=== PATIENT | female | born 1975 | race Caucasian/White ===

== ENCOUNTER → 2017-08-03 12:05 | Outpatient (CLI) | payer OTHER, SELFPAY ==
--- NOTE | 2017-08-03 12:12 | RAD_ITS ---
STUDY: X-RAY CHEST REASON FOR EXAM: Female, 42 years old. Acute bronchitis. TECHNIQUE: PA and lateral views of the chest. COMPARISON: April 17, 2009 FINDINGS: The lungs are clear and expanded. There is no demonstrated pleural abnormality. Normal size heart. Normal mediastinum and cele. Normal visualized pulmonary arteries. Normal visualized aortic arch and descending thoracic aorta. There is stable scoliosis of thoracic spine. Normal visualized ribs, clavicles, and shoulders. There is no demonstrated abnormality of the visualized soft tissue structures of the upper abdomen. RAD/Chest PA and Lateral IMPRESSION: No acute cardiopulmonary disease or interval change. Electronically Signed: Colby Fontana DO at 18:20 EST Tel [phone], Service support ,
== END ==
PROVIDERS: Family Provider Family Medicine; PCP Family Medicine; Visit Provider Family Medicine
DX: J20.9 Acute bronchitis, unspecified (principal)
CPT/HCPCS: 71046

== ENCOUNTER → 2017-10-26 10:00 | Outpatient (CLI) | payer BC, SELFPAY ==
[2017-10-26 11:22] LABS: Internal QC Validated? YES +Cl - CLEAR BKGD; Pregnancy, Urine Negative Negative
[2017-10-26 12:10] LABS: AST(SGOT) 15 U/L (15-37); Alanine Aminotransfer ALT/SGPT 17 U/L (13-56); Albumin, Serum 3.6 g/dL (3.2-5.0); Alkaline Phosphatase 46 U/L (45-117); Anion Gap 6 (5-15); BUN 11 mg/dL (7-18); BUN/Creat Ratio 14.9 RATIO (10-20); Bilirubin, Direct 0.11 mg/dL (0.00-0.30); Calcium,Total 8.2 mg/dL (8.5-10.1); Chloride 107 mmol/L (98-107); Cholesterol 141 mg/dL (200); Creatinine, Serum 0.74 mg/dL (0.55-1.02); EST Glomerular Filtration Rate 92 mL/min (>60); Est Glom Filt Rate - Afr Amer 112 mL/min (>60); Globulin 3.4 g/dL (2.2-4.2); Glucose 82 mg/dL (74-106); High Density Lipoprotein 60 mg/dL; Potassium 3.9 mmol/L (3.5-5.1); Sodium Level 142 mmol/L (136-145); T4 Total, Thyroxin 10.9 ug/dL (4.8-13.9); Thyroid Stim Hormone (TSH) 1.71 uIU/mL (0.358-3.74); Triglycerides 49 mg/dL; Very Low Density Lipoprotein 10 mg/dL (5-40)
== END ==
PROVIDERS: Family Provider Family Medicine; PCP Family Medicine; Visit Provider Internal Medicine Cardiovascular Disease
DX: R55 Syncope and collapse (principal); R00.2 Palpitations; R06.09 Other forms of dyspnea
CPT/HCPCS: 36415; 80048; 80061; 80076; 81025; 84436; 84443

== ENCOUNTER → 2017-11-01 12:46 | Outpatient (CLI) | payer BC, SELFPAY ==
--- NOTE | 2017-11-01 12:49 | ECHOD_ITS ---
Reason For Study: Arrhythmia Procedure This was a 2D Doppler, Color Flow transthoracic echocardiogram. Exam performed in department. Left Ventricle Normal size and thickness. The estimated ejection fraction is 65 %. Normal diastology for age. No regional wall motion abnormalities noted. Right Ventricle Normal size and thickness. Normal systolic function. Atria Normal left atrium. Normal right atrium. Normal atrial septum. Mitral Valve The mitral valve is structurally normal. No prolapse or stenosis seen. Tricuspid Valve Normal tricuspid valve. Trivial tricuspid valve insufficiency. Right ventricular systolic pressure estimated to be 21 mmHg. Aortic Valve Normal aortic valve. Trisinus/trileaflet aortic valve. Pulmonic Valve Normal pulmonic valve. Great Vessels Normal aortic root. Normal arch. Normal inferior vena cava. Inferior vena cava collapse with sniff. Pericardium/Pleural No pericardial effusion. MMode/2D Measurements & Calculations LVIDd: 4.1 cm IVSd: 0.92 cm Ao root diam: 2.7 cm LVIDs: 2.7 cm LVPWd: 0.75 cm LA dimension: 2.9 cm RVDd: 2.9 cm FS: 34.5 % LAV(MOD-bp): 31.9 ml LA A4 area: 14.7 cm2 RA A4 area: 13.0 cm2 LAV(MOD-bp) Indexed: 19.5 ml/m2 LAV(MOD-sp2): 28.2 ml LAV(MOD-sp4): 32.6 ml Time Measurements MV dec time: 0.22 sec Doppler Measurements & Calculations MV E max samuel: 99.7 cm/sec Lat Peak E' Samuel: 20.9 cm/sec Med Peak E' Samuel: 16.6 cm/sec MV A max samuel: 66.1 cm/sec E/E' lat: 4.8 E/E' med: 6.0 MV E/A: 1.5 MV V2 max: 111.9 cm/sec MV P1/2t max samuel: 111.9 cm/sec Ao V2 max: 137.4 cm/sec MV max P.0 mmHg MV P1/2t: 90.5 msec Ao max P.6 mmHg MV V2 mean: 57.6 cm/sec MV dec slope: 362.1 cm/sec2 Ao V2 mean: 93.8 cm/sec MV mean P.6 mmHg MVA(P1/2t): 2.4 cm2 Ao mean P.9 mmHg MV V2 VTI: 31.4 cm Ao V2 VTI: 28.0 cm LV V1 max: 106.8 cm/sec PA V2 max: 100.2 cm/sec TR max samuel: 196.8 cm/sec LV V1 max P.6 mmHg TR max P.5 mmHg LV V1 mean P.2 mmHg LV V1 mean: 67.5 cm/sec LV V1 VTI: 22.0 cm Interpretation Summary The estimated ejection fraction is 65 %. Normal diastology for age. Trivial tricuspid valve insufficiency. Right ventricular systolic pressure estimated to be 21 mmHg. There is no comparison study available. Ordering Physician: Santos Elise Referring Physician: Santos Elise Performed By: Les Ruiz RCS
== END ==
PROVIDERS: Family Provider Family Medicine; PCP Family Medicine; Visit Provider Internal Medicine Cardiovascular Disease
DX: R06.09 Other forms of dyspnea (principal); R55 Syncope and collapse; R00.2 Palpitations
CPT/HCPCS: 93306

== ENCOUNTER → 2017-11-03 12:20 | Outpatient (CLI) | payer BC, SELFPAY ==
--- NOTE | 2017-11-03 12:22 | STE_ITS ---
Reason For Study: Arrhythmia Stress Results Protocol: [facility] Protocol Maximum Predicted HR: 179 bpm Target HR: 152 bpm% Max imum Predicted HR: 97 % DurationHeart Rate Stage (mm:ss) (bpm) BPCom ment Baseline 61 100/62 No Chest Pain [facility] Protocol Stage I 3:00 11 8 110/64No Chest Pain [facility] Protocol Stage II 3:00 16 2 120/70No Chest Pain; Mild Dyspnea [facility] Protocol Stage III 2:00 17 3 130/72No Chest Pain; Mild to Moderate Dyspnea Recovery 96 98/64 No Chest Pain; No Dyspnea Stress Duration: 8:00 mm:ss Maximum Stress HR: 173 bpmM ETS: 10 Baseline Echocardiogram Findings The estimated ejection fraction is 65 %. Stress Echo Wall motion Data Resting WMIntermediate WMStress WM Resting Wall Motion Wall Motion Stress No regional wall motion No regional wall motion abnormalities noted. abnormalities noted. EKG Data Normal intervals are noted. The patient exercised according to the regular [facility] protocol for a total duration of 8:00. The maximum heart rate attained was 176 beats per minute. This was 98% of maximum predicted heart rate. The patient exercised into stage 3 of the [facility] protocol. At peak exercise, upsloping ST changes only were noted, which did not meet the criteria for ischemia. No clinical angina was noted. No arrhythmias noted. Interpretation Summary The estimated ejection fraction is 65 %. Normal adequate treadmill echocardiogram. Negative for ischemia by EKG and echocardiographic criteria. No anginal symptoms noted. No arrhythmias noted. Appropriate blood pressure response to exercise. Below average exercise capacity for age. Test terminated due to dyspnea. Final LVEF of 75%. No complications. Ordering Physician: Santos Elise Referring Physician: Santos Elise Performed By: Ada Guzman RDCS
== END ==
PROVIDERS: Family Provider Family Medicine; PCP Family Medicine; Visit Provider Internal Medicine Cardiovascular Disease
DX: R06.09 Other forms of dyspnea (principal); R55 Syncope and collapse; R00.2 Palpitations
CPT/HCPCS: 93017; 93350

== ENCOUNTER → 2018-09-11 15:15 | Outpatient (CLI) | payer BC, SELFPAY ==
[2018-09-11 09:22] VITALS: BMI 25.0
[2018-09-13 13:10] LABS: HPV APTIMA, High Risk Negative (Negative)
--- OUTSIDE RECORDS SUMMARY | 2018-10-31 21:22 | XMS RPT_ITS | CCD ---
:1975 External Reference #:[id number] Author Organization [employer] Care Team Providers Name Role Phone Unavailable Unavailable Unavailable Allergies Reported Allergen Reaction(s) Severity Date of Onset Location moxifloxacin Translations: AO Unknown [facility] [ Avelox] [facility] Repository moxifloxacin Translations: AOF 04-26-2006 - [facility] [ MOXIFLOXACIN HCL] [place] Repository No Known Allergies [facility] Translations: [ No Known Health System Repository Allergies] Results Result Name Value Range Unit Interpretation Flag Date Location tsh on 2017-09-20 Thyroid stimulating 2.04 0.30-5.60 mIU/m Normal 09-20-2017 [facility] hormone (TSH) [facility] ([id number]) Comment: Performed By: #### [id number] ####OLI [address] [place] [address] group a strep by pcr on 2018-03-12 GAS Specimen Source Throat Swab Normal 03-12-2018 [facility] ([id number]) Comment: Performed By: #### GASPCR ####[id number] [place], [place] [phone] Group A Strep PCR Negative for Group A Normal 03-12-2018 [facility] Streptococcus by PCR. [place] ([id number]) Comment: Result Comment: This test was developed and its performance characteristics determined by [facility]'s Burak JSue [facility] [place] ([facility]).It has not been cleared or approved by the FDA. [facility] is regulated under CLIA as qualified to perform high-complexity testing. This test is used for clinical purposes. It should not be regarded as investigational or for research. Performed By: #### GASPCR ####[facility] [address] [place], [place] [phone] progress on 2018-03-12 Protein mass HNO ID: [id number]: Sunny Normal 03-12-2018 Andrews Silva ([place]) Sang: (none)Author Clinic Type: Nurse PractitionerType: Andrews Wayne NotesFiled: 03/12/2018 ([id number]) 10:10 AMNote Text:SubjectiveHPIPatient presents with:sore throat and low grade fever: x 1 week but symptoms seem to be gettingworseStates tongue and roof of mouth feels like its burning.Denies known exposure to strep.Denies any otc treatment for symptoms.Review of SystemsConstitutional: Positive for fever (tactile, low grade).HENT: Positive for sore throat (roof of mouth and tongue burning).Negative for congestion, ear pain and sinus pain.Eyes: Negative for discharge and redness.Respiratory: Negative for cough.Gastrointestinal: Negative for nausea and vomiting.Skin: Negative for rash.Neurological: Negative for headaches.PAST MEDICAL HISTORYDiagnosis Date- Acne 06/09/2015 [facility] Derm.- Actinic Damage///Sun-Damaged Skin 04/28/2009- Bronchitis, not specified as acute or chronic Asthmatic.- DEPRESSIVE DISORDER NEC 05/12/2008- Dysplasia of cervix, unspecified- Female infertility of unspecified origin 03/14/2006 Dr. 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 Pride for injections- Variants of migraine, not elsewhere classified, without mention ofintractable migraine without mention of status migrainosusPAST SURGICAL HISTORYProcedure Laterality Date- COLPOSCOPY (VAGINOSCOPY) 2000 Colposcopy Mild dysplasia- PAST SURGICAL HISTORY OF 1980s LEFT TENDON HEEL REPAIR- PAST SURGICAL HISTORY OF Benign cyst removed from the left faceALLERGIES Avelox [Moxifloxacin Hcl]MEDICATIONSDoxycycline Monohydrate 150 mg cap Take 1 capsule by mouth once daily.From [facility] Dermatology.LORazepam (ATIVAN) 0.5 mg tab Take 1 tablet by mouth twice daily asneeded. FOR ANXIETY.nystatin (MYCOSTATIN) 100,000 unit/mL suspension Take 5 mL by mouth fourtimes daily for 7 days. 1tsp swish in mouth for several minutes, thenswallow (or expectorate) 4 times dailysertraline (ZOLOFT) 50 mg tablet Take 1 tablet by mouth every evening.FAMILY HISTORYProblem Relation Age of Onset- Hypertension Father- None Mother- None Brother- None Brother- None Sister- Diabetes Maternal Grandfather- Heart Paternal Grandfather- Heart Paternal Grandmother- Coronary Artery Disease Father onset age 60- Stroke Father onset age 50sSocial HistorySubstance Use Topics- Smoking status: Former Smoker Packs/day: 1.00 Years: 15.00 Quit date: 05/26/2005- Smokeless tobacco: Never Used- Alcohol use Yes Comment: Occasional mixed drinks 2-3 per monthObjectivePhysical ExamConstitutional: She is well-developed, well-nourished, and in no distress.HENT:Head: Normocephalic.Right Ear: External ear normal.Left Ear: External ear normal.Mouth/Throat: No posterior oropharyngeal edema or posterior oropharyngealerythema.Small amount of white adherent exudate noted on tongue mucousaEyes: Conjunctivae are normal.Neck: Normal range of motion. Neck supple.Lymphadenopathy: She has no cervical adenopathy.Nursing note and vitals reviewed.ASSESSMENT/PLAN:1. Oral thrush - ICD9: 112.0, ICD10: B37.0 (primary diagnosis)-Nystatin-reviewed oral hygiene-F/u with pcp in 3-5 days or sooner if symptoms are not improving orworsening2. Sore throat - ICD9: 462, ICD10: J02.9- Rapid Strep negative in the office today and Throat culture pending- Discussed supportive care treatment with fluids, rest and analgesia.- The patient may also use warm salt water gargles, throat lozengesand/or OTC throat spray as needed.- The patient should follow up in 3-5 days if symptoms persist or worsen- Call back if drooling, increased temperature, symptoms of dehydrationand/or still sick in one week- RAPID STREP TEST B/O- GROUP A STREPTOCOCCUS BY PCRPrescription instructions reviewed with patient as applicable. Patientadvised if symptoms do not improve or if symptoms worsen sooner, tocontact their primary care physician. Potential red flag symptomsdiscussed with the patient. Reviewed appropriate action plan to take ifred flag symptoms occur. Patient agreeable to treatment plan.Sunny Archuleta APRN.JD hoang on 2018-03-12 CNOV Office Visit Normal 03-12-2018 [facility] ([id number][facility] 1975 FDate Time Provider Department03/12/18 9:45 AM SUNNY ARCHULETA (FLOORING SALESPERSON) [facility] During [facility] your visit today, we recorded the following information about you: Temperature Pulse Respiration Blood ([id number]) pressure 97.9 degrees 60/minute 18/minute 102/62 Weight 61.5 kgSunny Archuleta APRN.AIR LIFT OPERATOR 03/12/2018 10:10 AM SignedSubjectiveHPIPatient presents with:sore throat and low grade fever: x 1 week but symptoms seem to be getting worseStates tongue and roof of mouth feels like its burning.Denies known exposure to strep.Denies any otc treatment for symptoms.Review of SystemsConstitutional: Positive for fever (tactile, low grade).HENT: Positive for sore throat (roof of mouth and tongue burning). Negative forcongestion, ear pain and sinus pain.Eyes: Negative for discharge and redness.Respiratory: Negative for cough.Gastrointestinal: Negative for nausea and vomiting.Skin: Negative for rash.Neurological: Negative for headaches.PAST MEDICAL HISTORYDiagnosis Date- Acne 06/09/2015 [facility].- Actinic Damage///Sun-Damaged Skin 04/28/2009- Bronchitis, not specified as acute or chronic Asthmatic.- DEPRESSIVE DISORDER NEC 05/12/2008- Dysplasia of cervix, unspecified- Female infertility of unspecified origin 03/14/2006 Dr. 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 Pride for injections- Variants of migraine, not elsewhere classified, without mention ofintractable migraine without mention of status migrainosusPAST SURGICAL HISTORYProcedure Laterality Date- COLPOSCOPY (VAGINOSCOPY) 2000 Colposcopy Mild dysplasia- PAST SURGICAL HISTORY OF 1980s LEFT TENDON HEEL REPAIR- PAST SURGICAL HISTORY OF Benign cyst removed from the left faceALLERGIES Avelox [Moxifloxacin Hcl]MEDICATIONSDoxycycline Monohydrate 150 mg cap Take 1 capsule by mouth once daily. [facility].LORazepam (ATIVAN) 0.5 mg tab Take 1 tablet by mouth twice daily as needed. FORANXIETY.nystatin (MYCOSTATIN) 100,000 unit/mL suspension Take 5 mL by mouth four timesdaily for 7 days. 1tsp swish in mouth for several minutes, then swallow (orexpectorate) 4 times dailysertraline (ZOLOFT) 50 mg tablet Take 1 tablet by mouth every evening.FAMILY HISTORYProblem Relation Age of Onset- Hypertension Father- None Mother- None Brother- None Brother- None Sister- Diabetes Maternal Grandfather- Heart Paternal Grandfather- Heart Paternal Grandmother- Coronary Artery Disease Father onset age 60- Stroke Father onset age 50sSocial HistorySubstance Use Topics- Smoking status: Former Smoker Packs/day: 1.00 Years: 15.00 Quit date: 05/26/2005- Smokeless tobacco: Never Used- Alcohol use Yes Comment: Occasional mixed drinks 2-3 per monthObjectivePhysical ExamConstitutional: She is well-developed, well-nourished, and in no distress.HENT:Head: Normocephalic.Right Ear: External ear normal.Left Ear: External ear normal.Mouth/Throat: No posterior oropharyngeal edema or posterior oropharyngealerythema.Small amount of white adherent exudate noted on tongue mucousaEyes: Conjunctivae are normal.Neck: Normal range of motion. Neck supple.Lymphadenopathy: She has no cervical adenopathy.Nursing note and vitals reviewed.ASSESSMENT/PLAN:1. Oral thrush - ICD9: 112.0, ICD10: B37.0 (primary diagnosis)-Nystatin-reviewed oral hygiene-F/u with pcp in 3-5 days or sooner if symptoms are not improving or worsening2. Sore throat - ICD9: 462, ICD10: J02.9- Rapid Strep negative in the office today and Throat culture pending- Discussed supportive care treatment with fluids, rest and analgesia.- The patient may also use warm salt water gargles, throat lozenges and/or OTCthroat spray as needed.- The patient should follow up in 3-5 days if symptoms persist or worsen- Call back if drooling, increased temperature, symptoms of dehydration and/orstill sick in one week- RAPID STREP TEST B/O- GROUP A STREPTOCOCCUS BY PCRPrescription instructions reviewed with patient as applicable. Patient advisedif symptoms do not improve or if symptoms worsen sooner, to contact their[facility] care physician. Potential red flag symptoms discussed with thepatient. Reviewed appropriate action plan to take if red flag symptoms occur.Patient agreeable to treatment plan.Sunny Archuleta APRN.Tiffany Archuleta APRN.CNP 03/12/2018 10:00 AM SignedDEFINITION: White, irregularly shaped patches that coat the inside of the mouth andsometimes the tongue, adhere to the mouth, and cannot be washed away or wipedoff easily like milk. (If the only symptom is a uniformly white tongue, it'sdue to a milk diet, not thrush.) Thrush causes mild discomfort. Bottle-fed or breast-fed childCAUSE: Thrush is caused by a yeast (Shira) that grows rapidly on the lining of themouth in areas abraded by prolonged sucking (as when a baby sleeps with abottle or pacifier). A large pacifier or nipple can also injure the lining ofthe mouth. Thrush may also occur when your child has recently been taking abroad-spectrum antibiotic. Thrush is not contagious since it does not invadenormal tissue.HOME CARE: Nystatin Oral Medicine. The drug for clearing this up is nystatin oralsuspension. It requires a prescription. Give 1 ml of nystatin four timesdaily. Place it in the front of the mouth on each side (it doesn't do any goodonce it's swallowed). If the thrush isn't responding, rub the nystatindirectly on the affected areas with a cotton swab or with gauze wrapped aroundyour finger. Apply it after meals, or at least don't feed your baby anythingfor 30 minutes after application. Do this for at least 7 days or until all thethrush has been gone for 3 days. If you are , apply nystatin toany irritated areas on your nipples. Decrease sucking time to 20 minutes per feeding. Prolonged sucking (as when ababy sleeps with a bottle or pacifier) can abrade the lining of the mouth andmake it more prone to yeast infection. If sucking on a nipple is painful foryour child, temporarily use a cup. If the thrush recurs and your child isbottle-fed, switch to a nipple with a different shape and made from silicone. Restrict pacifier use to bedtime. Eliminate the pacifier temporarily exceptwhen it's really needed for going to sleep. If your is using anorthodontic-type pacifier, switch to a smaller, regular one. Soak all nipplesin water at 130*F (55*C), the temperature of most hot tap water, for 15 minutes. Diaper rash associated with thrush. If your child has an associated diaperrash, assume it is due to yeast. Request nystatin cream and apply it fourtimes daily.CALL OUR OFFICE, During regular hours if:? Your child refuses to drink.? The thrush gets worse on treatment.? The thrush lasts beyond 10 days.? You have other concerns or questions.Instructions for Pediatric Patients, 2nd edition, 1999 by Daniels CompanyWritten by Justice Ojeda MD, hospital manager and author of Your Child'[employer]Cleveland [employer], a book for parents.Referring Provider: SELF [200]Allergies As of Date: 03/12/2018 Noted Allergy ReactionAVELOX (MOXIFLOXACIN HCL) 04/26/2006 5 - Intolerance Comments: InsomniaDate Reviewed: 03/12/2018Reviewed by: Kylee Real LPN - Fully AssessedReason for Visit: sore throat and low grade fever [Other] Cmt: x 1 week but symptoms seem to be getting worsePrimary Visit Diagnosis:Oral thrush [B37.0] Other Visit Diagnosis:Sore throat [J02.9]Order(s):RAPID STREP TEST B/O [3726051] Order #: [id number] GROUP A STREPTOCOCCUS BY PCR [SQGASPCR] Order #: [id number] nystatin (MYCOSTATIN) 100,000 unit/mL suspensionTake 5 mL by mouth four times daily for 7 days. 1tsp swish in mouth for several minutes, then swallow (or expectorate) 4 times dailyDisp: 200 mLRfl: 0Prescriptions as of 03/12/2018 Sig: DOXYCYCLINE MONOHYDRATE 150 M* Take 1 capsule by mouth once * LORAZEPAM 0.5 MG TABLET Take 1 tablet by mouth twice * NYSTATIN 100,000 UNIT/ML ORAL* Take 5 mL by mouth four times* SERTRALINE 50 MG TABLET Take 1 tablet by mouth every *Problem List As Of Date 03/12/2018 Noted Resolved Female infertility of unspecified origin [N97.9]INVALID FOR*08/04/2011 More... DEPRESSIVE DISORDER NEC [F32.9] INVALID FOR* INTRADERMAL NEVUS///Benign Neoplasm of Eyelid [*INVALID FOR*08/04/2011 IDN MOLE/ Benign Neopl.Skin: R Prox Inner thigh*INVALID FOR*08/04/2011 R/O Neoplasm Uncertain Behavior of Skin [D48.5]INVALID FOR*08/04/2011 Skin tag [L91.8] INVALID FOR*08/04/2011 Solar lentigo [L81.4] INVALID FOR*08/04/2011 Actinic Damage///Sun-Damaged Skin [L57.8] INVALID FOR*08/04/2011 Anxiety state [F41.1] INVALID FOR* Excessive or frequent menstruation [N92.0] INVALID FOR*06/09/2015 Irregular menstrual cycle [N92.6] INVALID FOR* More... Abdominal pain, left lower quadrant [R10.32] INVALID FOR*06/09/2015 Lumbar disc herniation with radiculopathy [M51.*INVALID FOR* More... Acne [L70.9] INVALID FOR* More... Other instructions from your clinician: DEFINITION: White, irregularly shaped patches that coat the inside of the mouth and sometimes the tongue, adhere to the mouth, and cannot be washed away or wiped off easily like milk. (If the only symptom is a uniformly white tongue, it's due to a milk diet, not thrush.) Thrush causes mild discomfort. Bottle-fed or breast-fed child CAUSE: Thrush is caused by a yeast (Shira) that grows rapidly on the lining of the mouth in areas abraded by prolonged sucking (as when a baby sleeps with a bottle or pacifier). A large pacifier or nipple can also injure the lining of the mouth. Thrush may also occur when your child has recently been taking a broad-spectrum antibiotic. Thrush is not contagious since it does not invade normal tissue. HOME CARE: Nystatin Oral Medicine. The drug for clearing this up is nystatin oral suspension. It requires a prescription. Give 1 ml of nystatin four times daily. Place it in the front of the mouth on each side (it doesn't do any good once it's swallowed). If the thrush isn't responding, rub the nystatin directly on the affected areas with a cotton swab or with gauze wrapped around your finger. Apply it after meals, or at least don't feed your baby anything for 30 minutes after application. Do this for at least 7 days or until all the thrush has been gone for 3 days. If you are , apply nystatin to any irritated areas on your nipples. Decrease sucking time to 20 minutes per feeding. Prolonged sucking (as when a baby sleeps with a bottle or pacifier) can abrade the lining of the mouth and make it more prone to yeast infection. If sucking on a nipple is painful for your child, temporarily use a cup. If the thrush recurs and your child is bottle-fed, switch to a nipple with a different shape and made from silicone. Restrict pacifier use to bedtime. Eliminate the pacifier temporarily except when it's really needed for going to sleep. If your infant is using an orthodontic-type pacifier, switch to a smaller, regular one. Soak all nipples in water at 130*F (55*C), the temperature of most hot tap water, for 15 minutes. Diaper rash associated with thrush. If your child has an associated diaper rash, assume it is due to yeast. Request nystatin cream and apply it four times daily. CALL OUR OFFICE, During regular hours if: ? Your child refuses to drink. ? The thrush gets worse on treatment. ? The thrush lasts beyond 10 days. ? You have other concerns or questions. Instructions for Pediatric Patients, 2nd edition, 1998 by [employer] Written by Justice Ojeda MD, hospital manager and author of Your Child's Health, [employer], a book for parents.Prescriptions ordered this encounter Disp Refills Start End NYSTATIN 100,000 UNIT/ML ORAL SUSPEN* 200 * 0 03/12/2018 03/19/2018 Route: ORAL Sig: Take 5 mL by mouth four times daily for 7 days. 1tsp swish in mouth for several minutes, then swallow (or expectorate) 4 times dailyDisposition: Return if symptoms worsen or fail to improve.Follow-up and Disposition History RecordedEncounter Number: [id number] Status:Closed by SUNNY ARCHULETA on 03/12/18 xr chest 2 views on 2017-09-20 XR Chest 2 Exam Date/Time:09/20/2017 09:55 Normal 09-20-2017 [facility] EDTReason for Exam:near [facility] syncope;Other (please System (14236) specify)ReportPROCEDURE: FRONTAL AND LATERAL CHEST RADIOGRAPHS, 09/20/2017 9:45 AMCLINICAL HISTORY: Syncope. Lightheadedness.TECHNIQUE: 2 views, 2 images.COMPARISON: None.RESULT: Cardiac silhouette and pulmonary vascularity are within normal limits.Lungs are symmetrically inflated and clear. There is no pleural effusion orpneumothorax. Mild gentle dextroscoliotic curvature of the thoracic spine.IMPRESSION:No acute cardiopulmonary process. FINAL REPORT Dictated: 09/20/2017 11:26 am Kaveh Webber MD ASigned (Electronic Signature): 09/20/2017 11:26 amSigned by: Kaveh Webber MD Technologist: troponin-i on 2017-09-20 Troponin I.cardiac mass <.01 .00-.03 ng/mL Normal 09-20-2017 [facility] ([id number]) Comment: Performed By: #### [id number] ####[address] [place] [address] hgba1c on 2017-09-20 Hemoglobin A1c/Hemoglobin.total 4.8 4.0-6.3 % Normal 09-20-2017 [facility] mass fraction (Bld) [facility] ([id number]) Comment: Performed By: #### [id number] ####OLI Chemistry Manual [address] [place] [address] free t4 on 2017-09-20 Thyroxine (T4) free 0.71 0.58-1.64 ng/dL Normal 09-20-[address] [facility] ([id number]) Comment: Performed By: #### [id number] ####[address] [place] [address] egfr on 2017-09-20 eGFR (non-black) >60 mL/min/{1.73_m2} Normal 09-20-[address] [facility] (33731) Comment: Order Comment: Order added by Discern Expert. Performed By: #### [id number] ####OLIGerry [address]kson[address]Gogg[address] [place] [address] cbc w/ auto diff on 2017-09-20 Erythrocyte distribution 13.3 11.5-14.5 % Normal 09-20-2017 [facility] width Auto Ratio (RBC) [facility] (99994) Comment: Performed By: #### [id number] ####[address]erry [address] [place] [address] Erythrocytes (RBC) 4.35 3.90-5.40 E6/mcL Normal 09-20-[address] [facility] (21566) Comment: Performed By: #### [id number] ####OLI [address] [place] [address] Hematocrit (HCT) 38.2 36.0-48.0 % Normal 09-20-[address] [facility] ([id number]) Comment: Performed By: #### [id number] ####[address]I [address] [place] [address] Hemoglobin mass conc 13.0 12.0-16.0 G/DL Normal 09-20-2017 [facility] (Bld) [facility] (17934) Comment: Performed By: #### [id number] ####[address] [place] [address] MCH 29.8 27.0-31.0 pg Normal 09-20-[address] [facility] (88418) Comment: Performed By: #### [id number] ####[address]I [address] [place] [address] MCHC mass conc (RBC) 33.9 33.0-37.0 G/DL Normal 09-20-[address] [facility] (33581) Comment: Performed By: #### [id number] ####[address] [place] [address] MCV 87.9 78.0-100.0 fL Normal 09-20-[address] [facility] ([id number]) Comment: Performed By: #### [id number] ####OLI [address] [place] [address] Platelet mean volume 8.1 7.4-11.0 fL Normal 09-20-2017 [facility] System (07506) Comment: Performed By: #### [id number] ####OLIGerry [address] [place] [address] Platelets 239 130-400 E3/mcL Normal 09-20-[address] [facility] (19913) Comment: Performed By: #### [id number] ####[address]I [address] [place] [address] WBC (Leukocytes) 6.2 3.6-11.0 E3/mcL Normal 09-20-[address] [facility] (83036) Comment: Performed By: #### [id number] ####OLIGerry [address] [place] [address] bmp on 2017-09-20 BUN/Creatinine Ratio 16.7 5.4-30.0 ratio Normal 09-20-[address] [facility] (40075) Comment: Performed By: #### [id number] ####OLIGerry [address] [place] [address] Calcium 8.6 8.4-10.2 mg/dL Normal 09-20-[address] [facility] (52049) Comment: Performed By: #### [id number] ####OLI [address] [place] [address] Chloride 105 98-107 mEq/L Normal 09-20-[address] [facility] (23698) Comment: Performed By: #### [id number] ####OLI [address] [place] [address] CO2 25.2 24.0-30.0 mEq/L Normal 09-20-[address] [facility] (05397) Comment: Performed By: #### [id number] ####OLI [address] [place] [address] Creatinine 0.6 0.6-1.3 mg/dL Normal 09-20-[address] [facility] (14706) Comment: Performed By: #### [id number] ####OLI [address] [place] [address] Glucose mass conc 93 70-99 mg/dL Normal 09-20-[address] [facility] ([id number]) Comment: Performed By: #### [id number] ####OLI [address] [place] [address] Potassium molar conc 3.5 3.5-5.1 mEq/L Normal 09-20-[address] [facility] (97798) Comment: Performed By: #### [id number] ####OLI [address] [place] [address] Sodium 135 136-145 mEq/L Low 09-20-[address] [facility] ([id number]) Comment: Performed By: #### [id number] ####OLI [address] [place] [address] Urea nitrogen 10 7-18 mg/dL Normal 09-20-[address] [facility] (43279) Comment: Performed By: #### [id number] ####OLI [address]heNowc[address] [place] [address] auto diff on 2017-09-20 Basophils Auto #/vol 0.1 0.0-0.2 E3/mcL Normal 09-20-2017 [facility] ([facility] (32372) Comment: Order Comment: Order Added by Discern Expert. Performed By: #### [id number] ####OLI [address] [place] [address] Basophils/100 WBC Auto ([facility]) 1.0 0.0-2.0 % Normal 09-20-[address] [facility] (60940) Comment: Order Comment: Order Added by Discern Expert. Performed By: #### [id number] ####OLI [address] [place] [address] Eos Absolute 0.0 0.0-0.7 E3/mcL Normal 09-20-[address] [facility] (78376) Comment: Order Comment: Order Added by Discern Expert. Performed By: #### [id number] ####OLI [address] [place] [address] Eosinophils/100 leukocytes 0.8 0.0-11.0 % Normal 09-20-[address] [facility] (70108) Comment: Order Comment: Order Added by Discern Expert. Performed By: #### [id number] ####[address] [place] [address] Lymphocytes 1.5 1.2-3.4 E3/mcL Normal 09-20-[address] [facility] ([id number]) Comment: Order Comment: Order Added by Discern Expert. Performed By: #### [id number] ####[address] [place] [address] Lymphocytes/100 leukocytes 23.4 20.0-55.0 % Normal 09-20-[address] [facility] ([id number]) Comment: Order Comment: Order Added by Doc Expert. Performed By: #### [id number] ####[address] [place] [address] [place] Absolute 0.3 0.0-0.7 E3/mcL Normal 09-20-[address] [facility] ([id number]) Comment: Order Comment: Order Added by Discern Expert. Performed By: #### [id number] ####[address] [place] [address] Monocytes/100 leukocytes 5.4 0.0-10.0 % Normal 09-20-[address] [facility] ([id number]) Comment: Order Comment: Order Added by Discern Expert. Performed By: #### [id number] ####[address] [place] [address] Neutro Absolute 4.3 1.4-6.5 E3/mcL Normal 09-20-[address] [facility] ([id number]) Comment: Order Comment: Order Added by Discern Expert. Performed By: #### [id number] ####[address] [place] [address] Neutro Auto 69.4 37.0-75.0 % Normal 09-20-[address] [facility] ([id number]) Comment: Order Comment: Order Added by Discern Expert. Performed By: #### [id number] ####[id number] [place] [address] Encounters Date Type Reason Provider Location 09-20-2017 - Emergency department Ludwig Alexander Potts Facility:[facility] 09-20-2017 patient visit [facility] 03-12-2018 - Patient encounter [facility] 03-13-2018 [place] ([id number]) Payers Payer Name Policy Number Location [facility], [facility] ([id number]) The following information is from the original human readable content ENCOUNTER GUARANTOR PAYER SUBSCRIBER SOURCE 2017 [facility] [id number] [facility] [id number] [facility] Number: Effective [facility] [id number]: Date:2017 - [place], [place] [id number] [id number]: [phone] (HP) Name:[id number] ()Tel[place] [address] [address]WP: [phone] ([phone] No Payer Records Found Summary Purpose DATE CREATED AUTHOR AUTHOR'S ORGANIZATION 12/15/[address] [facility] DATE CREATED AUTHOR AUTHOR'S ORGANIZATION 04/08/2018 [facility] Family History No Family History Records Found Advance Directives No Advanced Directives Records Found Additional Source Comments FOR RECORDS PERTAINING TO PATIENTS WHO ARE OR HAVE BEEN ENROLLED IN A CHEMICAL DEPENDENCY/SUBSTANCE ABUSE PROGRAM, SOME INFORMATION MAY BE OMITTED. This clinical summary was aggregated from multiple sources. Caution should be exercised in using it in the provision of clinical care. This summary normalizes information from multiple sources, and as a consequence, information in this document may materially changethe coding, format and clinical context of patient data. In addition, data may be omittedin some cases. CLINICAL DECISIONS SHOULD BE BASED ON THE PRIMARY CLINICAL RECORDS. [facility] provides no warranty or guarantee of the accuracy or completeness of information in this document. UNRECOGNIZED CONTENT PROVIDED BELOW FOR UNRECOGNIZED SECTION INFORMATION SOURCE DATE CREATED AUTHOR AUTHOR'S ORGANIZATION 04/08/2018 [facility] DATE CREATED AUTHOR AUTHOR'S ORGANIZATION 12/15/[address] [facility]
== END ==
PROVIDERS: Family Provider Family Medicine; PCP Family Medicine; Referring Provider Nurse Practitioner Women's Health; Visit Provider Nurse Practitioner Women's Health
DX: Z12.4 Encounter for screening for malignant neoplasm of cervix (principal)
CPT/HCPCS: 87624; 88175; G0145

== ENCOUNTER 2019-12-29 16:24 | Emergency (ER) | payer BC, SELFPAY ==
[2018-10-09 14:58] VITALS: BMI 24.6
[2019-12-29 16:25] VITALS: BP 150/71; PULSE 77; RESP 16; TEMP 37.4; O2SAT 100; BMI 24.7
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
[2019-12-29] MEDS: Silver Sulfadiazine 1% Crm 50 gm Bottle 1 APPLIC TOPICAL (16:56)
[2019-12-29] MEDS: oxyCODONE 5 MG Tablet 10 MG PO (16:59)
== END 2019-12-29 17:22 | disposition home or self-care (01) ==
LOC: ED 17:10
PROVIDERS: Emergency Provider Emergency Medicine; PCP Family Medicine
DX: T23.261A Burn of second degree of back of right hand, initial encounter (principal); T23.011A Burn of unspecified degree of right thumb (nail), initial encounter; X08.8XXA Exposure to other specified smoke, fire and flames, initial encounter; Y93.G2 Activity, grilling and smoking food; Y92.9 Unspecified place or not applicable; F41.9 Anxiety disorder, unspecified; Z87.891 Personal history of nicotine dependence
CPT/HCPCS: 99283

== ENCOUNTER → 2020-04-29 | Outpatient (CLI) | payer BC, SELFPAY | END | disposition home or self-care (01) | LOC: LABSPEC 16:52 | PROVIDERS: PCP Family Medicine; Referring Provider Family Medicine; Visit Provider Family Medicine | DX: J06.9 Acute upper respiratory infection, unspecified (principal) | CPT/HCPCS: 87635; U0003 ==

== ENCOUNTER → 2020-05-06 08:57 | Outpatient (CLI) | payer BC, SELFPAY ==
[2020-05-05 13:17] LABS: AST(SGOT) 15 U/L (15-37); Alanine Aminotransfer ALT/SGPT 16 U/L (13-56); Albumin, Serum 3.6 g/dL (3.2-5.0); Alkaline Phosphatase 45 U/L (45-117); Amylase 90 U/L (25-115); Bilirubin, Direct 0.14 mg/dL (0.00-0.30); Globulin 3.4 g/dL (2.2-4.2); Lipase 136 U/L (73-393)
--- NOTE | 2020-05-06 08:58 | US_ITS ---
STUDY: ABDOMINAL ULTRASOUND - RIGHT UPPER QUADRANT REASON FOR VISIT: Female, 45 years old CHRONIC NAUSEA TECHNIQUE: Ultrasound evaluation of the right upper quadrant was performed with real-time and static ivan-scale imaging. TECHNICAL QUALITY: Adequate. COMPARISON: None. FINDINGS: Liver: The liver measures 16.1 cm. There is normal echogenicity of the liver. The bile ducts are within normal limits. There is hepatic color flow. The direction of portal flow is hepatopetal. There is no demonstrated mass lesion. Gallbladder: Normal distended gallbladder. The gallbladder wall measures 2.9 mm. There is a negative sonographic Montes''s sign. There is no pericholecystic fluid. There are no gallstones. Common Bile Duct (C.B.D.): The common bile duct measures 3.4 mm. Pancreas: Normal size of the head, body and tail of the pancreas. There is normal echogenicity of the pancreas. There is no demonstrated pancreatic mass or cyst. Right Kidney: Normal size of the right kidney. The right kidney measures 10 cm x 5.1 cm x 6.1 cm. Normal renal cortex. The right cortex measures 2.7 cm. There is no demonstrated renal mass or cyst. There is no right hydronephrosis. US/Abdomen Limited IMPRESSION: Normal right upper quadrant ultrasound examination. Electronically Signed: Corwin Bolton, at 10:17 EST , Service support ,
== END ==
PROVIDERS: PCP Family Medicine; Referring Provider Family Medicine; Visit Provider Family Medicine
DX: R11.0 Nausea (principal)
CPT/HCPCS: 36415; 76705; 80076; 82150; 83690

== ENCOUNTER → 2021-03-15 | Outpatient (CLI) | payer OTHER, BC, SELFPAY | END | disposition home or self-care (01) | LOC: LABSPEC 07:42 | PROVIDERS: PCP Family Medicine; Referring Provider Physician Assistant; Visit Provider Physician Assistant | DX: U07.1 COVID-19 (principal) | CPT/HCPCS: 87635; U0005; U0003 ==

== ENCOUNTER → 2023-05-01 | Outpatient (CLI) | payer OTHER, BC, SELFPAY ==
--- NOTE | 2023-05-01 07:09 | US_ITS ---
STUDY: ABDOMINAL ULTRASOUND - RIGHT UPPER QUADRANT REASON FOR VISIT: Female, 48 years old right upper quadrant pain TECHNIQUE: Ultrasound evaluation of the right upper quadrant was performed with real-time and static ivan-scale imaging. TECHNICAL QUALITY: Adequate. COMPARISON: None. FINDINGS: Liver: The liver measures 16.3 cm. There is normal echogenicity of the liver. The bile ducts are within normal limits. There is hepatic color flow. The direction of portal flow is hepatopetal. There is no demonstrated mass lesion. Gallbladder: Normal distended gallbladder. The gallbladder wall measures 2 mm. There is a negative sonographic Montes''s sign. There is no pericholecystic fluid. There are no gallstones. Common Bile Duct (C.B.D.): The common bile duct measures 5 mm. Pancreas: Normal size of the head, body and tail of the pancreas. There is normal echogenicity of the pancreas. There is no demonstrated pancreatic mass or cyst. Right Kidney: Normal size of the right kidney. The right kidney measures 10.2 x 4.7 x 4.0 cm. Normal renal cortex. The right cortex measures 1.3 cm. There is no demonstrated renal mass or cyst. There is no right hydronephrosis. US/Abdomen Limited IMPRESSION: Normal right upper quadrant ultrasound examination. Electronically Signed: Padilla Joy MD at 9:00 EST ,
== END | disposition home or self-care (01) ==
PROVIDERS: PCP Family Medicine; Referring Provider Family Medicine; Visit Provider Family Medicine
DX: R10.9 Unspecified abdominal pain (principal)
CPT/HCPCS: 76705

== ENCOUNTER → 2025-05-14 | Outpatient (CLI) | payer OTHER, BC, SELFPAY ==
--- OUTSIDE RECORDS SUMMARY | 2025-05-14 16:58 | XMS RPT_ITS | CCD ---
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 [facility] SM Jt Injection/Arthrocentes is: R thumb MCPon 11-08-2023 Sara Will CNP 11/08/2023 12:29 PM SM Jt Injection/Arthrocentesi s: R thumb MCP Performed by: Sara Will CNP Authorized by: Sara Will CNP CPT 23308 - Small Joint Arthrocentesis: Consent given by: Patient Time out: Immediately prior to the procedure a time out was called Physician or proceduralist has discussed critical or nonroutine steps, procedure duration and anticipated blood loss: Yes Supporting Documentation: Indications: Pain, joint swelling and diagnostic evaluation Procedure Details: Location: Thumb Site: R thumb MCP Prep: patient was prepped and draped in usual sterile fashion Needle size: 25 G Approach: Dorsal Medications: 20 mg triamcinolone acetonide 40 mg/mL Anesthetic used:: Lidocaine 1% Anesthetic amount (mL): 1 Patient tolerance: Patient tolerated the procedure well with no immediate complications [facility] MR FOOT LEFT WO IV CONTRASTo n 11-03-2023 MR FOOT LEFT WO IV CONTRAST Interpreted By: Kristian Espino, STUDY: MRI of the left forefoot without contrast dated 11/03/2023. INDICATION: Signs/Symptoms:LISFRANC 'S DISLOCATION LEFT SEQUELA COMPARISON: None. ACCESSION NUMBER(S): [id number] ORDERING CLINICIAN: MENG DUCKWORTH TECHNIQUE: Multiplanar multisequence MRI of the left forefoot was performed without intravenous gadolinium based contrast. FINDINGS: OSSEOUS STRUCTURES AND JOINTS: There is increased T2 signal intensity in the diaphysis the 2nd metatarsal with thickening the cortex along the medial diaphysis into distal metaphysis. No dislocation is evident. Scratch no joint effusion is evident. MUSCLES, TENDONS, AND LIGAMENTS: There is mild increased T2 signal intensity in the intrinsic musculature adjacent to the 2nd metatarsal. There is a small volume of fluid in the sheath of the plantar peroneal longus tendon with intermediate signal intensity in the tendon at the midportion of the midfoot which appears to be slightly greater than the normal fibrofatty striation. There is mild thickening with increased intermediate signal intensity in the plantar portion of the Lisfranc ligament complex there is some increased intermediate signal intensity within the intraosseous portion of the Lisfranc ligament complex. It appears to be otherwise intact. SOFT TISSUES: There is a trace volume of fluid in the 2nd-3rd intermetatarsal bursa. IMPRESSION: 1. Findings most compatible with sequelae of stress fracture the 2nd metatarsal with reactive marrow changes seen in the metadiaphysis and cortical thickening along the diaphysis to the distal metaphysis on the medial side. 2. Findings likely representing sequelae of mild sprain of the Lisfranc ligament complex. 3. Mild tendinosis with tenosynovitis of the plantar peroneal longus tendon and its sheath. 4. Mild strain/reactive edema in the intrinsic musculature of the foot adjacent to the 2nd metatarsal. Signed by: Kristian Espino 11/03/2023 2:08 PM Dictation workstation: [id number] [facility] MR Foot - left WO contraston 11-03-2023 1. Findings most compatible with sequelae of stress fracture the 2nd metatarsal with reactive marrow changes seen in the metadiaphysis and cortical thickening along the diaphysis to the distal metaphysis on the medial side. 2. Findings likely representing sequelae of mild sprain of the Lisfranc ligament complex. 3. Mild tendinosis with tenosynovitis of the plantar peroneal longus tendon and its sheath. 4. Mild strain/reactive edema in the intrinsic musculature of the foot adjacent to the 2nd metatarsal. Signed by: Kristian Espino 11/03/2023 2:08 PM Dictation workstation: [id number] [facility] Interpreted By: Kristian Swenson, STUDY: MRI of the left forefoot without contrast dated 11/03/2023. INDICATION: Signs/Symptoms:LISFRANC 'S DISLOCATION LEFT SEQUELA COMPARISON: None. ACCESSION NUMBER(S): [id number] ORDERING CLINICIAN: MENG DUCKWORTH TECHNIQUE: Multiplanar multisequence MRI of the left forefoot was performed without intravenous gadolinium based contrast. FINDINGS: OSSEOUS STRUCTURES AND JOINTS: There is increased T2 signal intensity in the diaphysis the 2nd metatarsal with thickening the cortex along the medial diaphysis into distal metaphysis. No dislocation is evident. Scratch no joint effusion is evident. MUSCLES, TENDONS, AND LIGAMENTS: There is mild increased T2 signal intensity in the intrinsic musculature adjacent to the 2nd metatarsal. There is a small volume of fluid in the sheath of the plantar peroneal longus tendon with intermediate signal intensity in the tendon at the midportion of the midfoot which appears to be slightly greater than the normal fibrofatty striation. There is mild thickening with increased intermediate signal intensity in the plantar portion of the Lisfranc ligament complex there is some increased intermediate signal intensity within the intraosseous portion of the Lisfranc ligament complex. It appears to be otherwise intact. SOFT TISSUES: There is a trace volume of fluid in the 2nd-3rd intermetatarsal bursa. [facility] Kristian Espino M D - 11/03/2023 Interpreted By: Kristian Espino, STUDY: MRI of the left forefoot without contrast dated 11/03/2023. INDICATION: Signs/Symptoms:LISFRANC 'S DISLOCATION LEFT SEQUELA COMPARISON: None. ACCESSION NUMBER(S): [id number] ORDERING CLINICIAN: MENG DUCKWORTH TECHNIQUE: Multiplanar multisequence MRI of the left forefoot was performed without intravenous gadolinium based contrast. FINDINGS: OSSEOUS STRUCTURES AND JOINTS: There is increased T2 signal intensity in the diaphysis the 2nd metatarsal with thickening the cortex along the medial diaphysis into distal metaphysis. No dislocation is evident. Scratch no joint effusion is evident. MUSCLES, TENDONS, AND LIGAMENTS: There is mild increased T2 signal intensity in the intrinsic musculature adjacent to the 2nd metatarsal. There is a small volume of fluid in the sheath of the plantar peroneal longus tendon with intermediate signal intensity in the tendon at the midportion of the midfoot which appears to be slightly greater than the normal fibrofatty striation. There is mild thickening with increased intermediate signal intensity in the plantar portion of the Lisfranc ligament complex there is some increased intermediate signal intensity within the intraosseous portion of the Lisfranc ligament complex. It appears to be otherwise intact. SOFT TISSUES: There is a trace volume of fluid in the 2nd-3rd intermetatarsal bursa. IMPRESSION: 1. Findings most compatible with sequelae of stress fracture the 2nd metatarsal with reactive marrow changes seen in the metadiaphysis and cortical thickening along the diaphysis to the distal metaphysis on the medial side. 2. Findings likely representing sequelae of mild sprain of the Lisfranc ligament complex. 3. Mild tendinosis with tenosynovitis of the plantar peroneal longus tendon and its sheath. 4. Mild strain/reactive edema in the intrinsic musculature of the foot adjacent to the 2nd metatarsal. Signed by: Kristian Espino 11/03/2023 2:08 PM Dictation workstation: [id number] [facility] Work Phone: Radiology Study observation (narrative) [facility] Work Phone: MR Foot - left WO contrastOr dered By: Kristian Espino on 11-03-2023 [facility] Work Phone: XR Foot - left 3 Viewson Clear second metatar farzana neck oblique stress fracture present no widening at the fracture site with good ojpx-gj-orre anastomosis present. [facility] Radiology Study observation (narrative) CNOVon 07-03-2023 CNOV Office Visit (UCWSTR ) KETURAH BARRAZA ([id number]) 1975 F Date Time Provider Department 07/03/23 5:15 PM JASON DUNN [facility] During your visit today, we recorded the following information about you: Temperature Pulse Respiration Blood pressure 98.1 degrees 68/minute 16/minute 110/72 Weight 70.8 kg Jason Dunn APRN.LATHE SET UP PERSON 07/03/2023 6:09 PM Signed Subjective HPI Nontoxic-appearing female presents urgent care chief plaint left foot pain. Duration of symptoms 5 days. Associated symptoms left foot pain. Patient states she jumped out of her 's truck. When she struck the ground she felt a sharp pain in her left foot. States she did not land funny or twisted ankle. Pain is mainly around her third fourth metatarsal. States pain has slightly improved but is stayed persistent. Rates pain 4 out of 10. Worse with walking. No numbness no tingling. No decrease sensation. Past medical history prescription medication use allergies reviewed. .Patient presents with: Pain (foot): left x 5 days, stepped out of a truck PAST MEDICAL HISTORY Diagnosis Date Acne 06/09/2015 [facility]. Actinic Damage///Sun-Damaged Skin 04/28/2009 Bronchitis, not specified as acute or chronic Asthmatic. DEPRESSIVE DISORDER NEC 05/12/2008 Dysplasia of cervix, unspecified Female infertility of unspecified origin 03/14/2006 Dr. Lemus Generalized anxiety disorder Irregular menstrual cycle Irregular periods Lumbar disc herniation with radiculopathy 09/14/2011 Dr. Pride for injections Variants of migraine, not elsewhere classified, without mention of intractable migraine without mention of status migrainosus PAST SURGICAL HISTORY Procedure Laterality Date COLPOSCOPY CERVIX UPPER/ADJACENT VAGINA 2000 Colposcopy Mild dysplasia PAST SURGICAL HISTORY OF 1980s LEFT TENDON HEEL REPAIR PAST SURGICAL HISTORY OF Benign cyst removed from the left face ALLERGIES Avelox [Moxifloxacin Hcl] MEDICATIONS doxycycline 20 mg tablet traZODone (DESYREL) 50 mg tablet Take 50 mg by mouth daily at bedtime. LORazepam (ATIVAN) 0.5 mg tab Take 1 tablet by mouth twice daily as needed. FOR ANXIETY. sertraline (ZOLOFT) 50 mg tablet Take 1 tablet by mouth every evening. FAMILY HISTORY Problem Relation Age of Onset Hypertension Father None Mother None Brother None Brother None Sister Diabetes Maternal Grandfather Heart Paternal Grandfather Heart Paternal Grandmother Coronary Artery Disease Father onset age 60 Stroke Father onset age 50s Social History Tobacco Use Smoking status: Former Packs/day: 1.00 Years: 15.00 Additional pack years: 0.00 Total pack years: 15.00 Types: Cigarettes Quit date: 05/26/2005 Years since quittin.1 Smokeless tobacco: Never Substance Use Topics Alcohol use: Yes Comment: Occasional mixed drinks 2-3 per month Drug use: No BP 110/72 Pulse 68 Temp 36.7 ?C (98.1 ?F) Resp 16 Wt 70.8 kg (156 lb) LMP 02/17/2016 (Exact Date) SpO2 99% Review of Systems Constitutional: Negative for chills, fever and malaise/fatigue. HENT: Negative for congestion, ear discharge, ear pain, sinus pain and sore throat. Eyes: Negative for blurred vision, pain, discharge and redness. Respiratory: Negative for cough, hemoptysis, sputum production, shortness of breath, wheezing and stridor. Cardiovascular: Negative for chest pain. Gastrointestinal: Negative for abdominal pain, diarrhea, nausea and vomiting. Musculoskeletal: Positive for joint pain. Negative for falls and myalgias. Skin: Negative for itching and rash. Neurological: Negative for dizziness and headaches. Objective Physical Exam Constitutional: General: She is not in acute distress. Appearance: She is not toxic-appearing. HENT: Head: Normocephalic. Nose: Nose normal. Eyes: Pupils: Pupils are equal, round, and reactive to light. Cardiovascular: Rate and Rhythm: Normal rate. Pulmonary: Effort: Pulmonary effort is normal. No respiratory distress. Musculoskeletal: Cervical back: Normal range of motion. Left ankle: Normal. Left Achilles Tendon: No tenderness. Left foot: Normal range of motion and normal capillary refill. Tenderness and bony tenderness present. No swelling or deformity. Normal pulse. Feet: Feet: Comments: Pain with palpation the highlighted area. No erythema edema. No breaks in skin. Neurovascular intact. Skin: General: Skin is warm and dry. Neurological: General: No focal deficit present. Mental Status: She is alert. ASSESSMENT/PLAN: 1. Foot pain, left - ICD9: 729.5, ICD10: M79.672 - XR FOOT GENERAL 3V AP/LAT/OBL LEFT IMPRESSION: No evidence of acute fracture or malalignment. No acute fractures or malalignments noted. Treat as sprain versus contusion. Encouraged to follow-up with podiatry send today symptoms are improving. Patient (more content not included)... Normal [facility] XR FOOT 3V AP/LAT/OBL LTon 0 07-03-2023 XR FOOT 3V AP/LAT/OBL LT * * *Final Report* * * DATE OF EXAM: Jul 03 2023 5:46PM WOX [id number] - XR FOOT 3V AP/LAT/OBL LT / PROCEDURE REASON: Foot pain, left * * * * Physician Interpretation * * * * EXAMINATION: LEFT FOOT X-RAY SERIES HISTORY: Foot pain, left COMPARISON: 02/18/2016 TECHNIQUE: AP, lateral and oblique views. RESULT: No fracture, dislocation or destructive changes. Joint spaces and articular surfaces are preserved. Soft tissues appear within normal limits. IMPRESSION: No evidence of acute fracture or malalignment. Fish Trapper: JAMES Transcribe Date/Time: Jul 03 2023 5:56P Dictated by : GENI OTERO MD This examination was interpreted and the report reviewed and electronically signed by: GENI OTERO MD on Jul 03 2023 5:58PM EST [id number] Normal [facility] XR Foot - left AP and Latera l and obliqueon 07-03-2023 IMPRESSION: No evidence of acute fracture or malalignment. Fish Trapper: JAMES Transcribe Date/Time: Jul 03 2023 5:56P Dictated by : GENI OTERO MD This examination was interpreted and the report reviewed and electronically signed by: GENI OTERO MD on Jul 03 2023 5:58PM EST DIVISION OF RADIOLOGY * * *Final Report* * * DATE OF EXAM: Jul 03 2023 5:46PM WOX [id number] - XR FOOT 3V AP/LAT/OBL LT / PROCEDURE REASON: Foot pain, left * * * * Physician Interpretation * * * * EXAMINATION: LEFT FOOT X-RAY SERIES HISTORY: Foot pain, left COMPARISON: 02/18/2016 TECHNIQUE: AP, lateral and oblique views. RESULT: No fracture, dislocation or destructive changes. Joint spaces and articular surfaces are preserved. Soft tissues appear within normal limits. DIVISION OF RADIOLOGY Provider, [facility] Nupur [facility] - 07/03/2023 * * *Final Report* * * DATE OF EXAM: Jul 03 2023 5:46PM WOX [id number] - XR FOOT 3V AP/LAT/OBL LT / PROCEDURE REASON: Foot pain, left * * * * Physician Interpretation * * * * EXAMINATION: LEFT FOOT X-RAY SERIES HISTORY: Foot pain, left COMPARISON: 02/18/2016 TECHNIQUE: AP, lateral and oblique views. RESULT: No fracture, dislocation or destructive changes. Joint spaces and articular surfaces are preserved. Soft tissues appear within normal limits. IMPRESSION IMPRESSION: No evidence of acute fracture or malalignment. Fish Trapper: JAMES Transcribe Date/Time: Jul 03 2023 5:56P Dictated by : GENI OTERO MD This examination was interpreted and the report reviewed and electronically signed by: GENI OTERO MD on Jul 03 2023 5:58PM EST [facility] Radiology Study observation (narrative) [facility] XR Foot - left AP and Latera l and obliqueOrdered By: [facility] Provider on 07-03-2023 [facility] MM SCREENING WAN BILATERALo n 04-12-2023 MM SCREENING WAN BILATERAL EXAMINATION: MM SCREENING WAN BILATERAL INDICATION: Annual screening exam. Dx: Z12.31 (Visit for screening mammogram) ORDERING SYSTEM PROVIDED HISTORY: Visit for screening mammogram, TECHNOLOGIST PROVIDED HISTORY: ORDERING SYSTEM PROVIDED DIAGNOSIS CODES: Z12.31 Visit for screening mammogram COMPARISON: Mammograms 2016 and 2012 TECHNIQUE: Standard mammographic views, 2D and 3D. Computer-aided detection was utilized in the interpretation of this exam. FINDINGS: The breasts are heterogeneously dense, which may obscure small masses. No suspicious masses, calcifications, skin thickening, or nipple retraction. No significant interval change. IMPRESSION: No mammographic evidence of malignancy. BIRADS: BIRADS - CATEGORY 1 Negative, no evidence of malignancy. Normal interval follow-up is recommended in 12 months. OVERALL ASSESSMENT - NEGATIVE A letter of notification will be sent to the patient regarding the results. , along with the [employer], the [employer], and [facility], recommend annual screening mammograms for women age 40 and older. Workstation ID: [id number] Dictated by: GENI CASTELLANOS on MonApr 19, 2023 10:01:48 AM EDT Transcribed by: GENI CASTELLANOS on MonApr 19, 2023 10:01:48 AM EDT Finalized by: GENI CASTELLANOS on MonApr 19, 2023 10:01:48 AM EDT Normal [facility] BASIC METABOLIC PANELon 06-0 Anion gap [Moles/Vol] 10 mmol/L Normal 10 - 20 [facility] Comment on above: Performed By: #### B MP #### [address] [address] Calcium [Mass/Vol] 9.0 mg/dL Normal 8.6 - 10.3 [facility] Comment on above: Performed By: #### B MP #### [address] [address] Chloride [Moles/Vol] 104 mmol/L Normal 98 - 107 [facility] Comment on above: Performed By: #### B MP #### [address] [address] Creatinine [Mass/Vol] 1.08 mg/dL High 0.50 - 1.05 [facility] Comment on above: Performed By: #### B MP #### [address] [address] GFR/1.73 sq M.predicted among non-blacks MDRD (S/P/Bld) [Vol rate/Area] 64 mL/min/{1.73_m2} Normal >90 [facility] Comment on above: Result Comment: CALC ULATIONS OF ESTIMATED GFR ARE PERFORMED USING THE 2020 CKD-EPI STUDY REFIT EQUATION WITHOUT THE RACE VARIABLE FOR THE IDMS-TRACEABLE CREATININE METHODS. https://jasn.asnjournals.org/content//ASN.7290127 988 Performed By: #### B MP #### [address] [address] Glucose [Mass/Vol] 101 mg/dL High 74 - 99 [facility] Comment on above: Performed By: #### B MP #### [address] [address] HCO3 (Bld) [Moles/Vol] 26 mmol/L Normal 21 - 32 [facility] Comment on above: Performed By: #### B MP #### [address] [address] Potassium [Moles/Vol] 3.8 mmol/L Normal 3.5 - 5.3 [facility] Comment on above: Performed By: #### B MP #### [place] [id number] Sodium [Moles/Vol] 136 mmol/L Normal 136 - 145 [facility] Comment on above: Performed By: #### B MP #### [place] [id number] Urea nitrogen [Mass/Vol] 15 mg/dL Normal 6 - 23 [facility] Comment on above: Performed By: #### B MP #### [place] [id number] CBC AND DIFFERENTIALon 12-01 % AUTOMATED IMMATURE GRAN 0.3 % Normal 0.0 - 0.9 [facility] Comment on above: Result Comment: Xochitl ture Granulocyte Count (IG) includes promyelocytes, myelocytes and metamyelocytes but does not include bands. Percent differential counts (%) should be interpreted in the context of the absolute cell counts (cells/L). Performed By: #### C BCDF #### [place] [id number] Basophils (Bld) [#/Vol] 0.11 10*3/uL High 0.00 - 0.10 [facility] Comment on above: Performed By: #### C BCDF #### [place] [id number] Basophils/100 WBC (Bld) 1.4 % Normal 0.0 - 2.0 [facility] Comment on above: Performed By: #### C BCDF #### [place] [id number] Eosinophils (Bld) [#/Vol] 0.04 10*3/uL Normal 0.00 - 0.70 [facility] Comment on above: Performed By: #### C BCDF #### [address] [address] Eosinophils/100 WBC (Bld) 0.5 % Normal 0.0 - 6.0 [facility] Comment on above: Performed By: #### C BCDF #### [address] [address] Erythrocyte distribution width (RBC) [Ratio] 12.4 % Normal 11.5 - 14.5 [facility] Comment on above: Performed By: #### C BCDF #### [address] [address] Hematocrit (Bld) [Volume fraction] 41.7 % Normal 36.0 - 46.0 [facility] Comment on above: Performed By: #### C BCDF #### [address] [address] Hemoglobin (Bld) [Mass/Vol] 13.6 g/dL Normal 12.0 - 16.0 [facility] Comment on above: Performed By: #### C BCDF #### [address] [address] Lymphocytes (Bld) [#/Vol] 1.40 10*3/uL Normal 1.20 - 4.80 [facility] Comment on above: Performed By: #### C BCDF #### [address] [address] Lymphocytes/100 WBC (Bld) 17.6 % Normal 13.0 - 44.0 [facility] Comment on above: Performed By: #### C BCDF #### [address] [address] MCHC (RBC) [Mass/Vol] 32.6 g/dL Normal 32.0 - 36.0 [facility] Comment on above: Performed By: #### C BCDF #### [address] [address] MCV (RBC) [Entitic vol] 88 fL Normal 80 - 100 [facility] Comment on above: Performed By: #### C BCDF #### [address] [address] Monocytes (Bld) [#/Vol] 0.59 10*3/uL Normal 0.10 - 1.00 [facility] Comment on above: Performed By: #### C BCDF #### [address] [address] Monocytes/100 WBC (Bld) 7.4 % Normal 2.0 - 10.0 [facility] Comment on above: Performed By: #### C BCDF #### [address] [address] Neutrophils (Bld) [#/Vol] 5.80 10*3/uL Normal 1.20 - 7.70 [facility] Comment on above: Result Comment: Perc ent differential counts (%) should be interpreted in the context of the absolute cell counts (cells/L). Performed By: #### C BCDF #### [address] [address] Neutrophils/100 WBC (Bld) 72.8 % Normal 40.0 - 80.0 [facility] Comment on above: Performed By: #### C BCDF #### [address] [address] Platelets (Bld) [#/Vol] 288 10*3/uL Normal 150 - 450 [facility] Comment on above: Performed By: #### C BCDF #### [address] [address] RBC 4.74 x10E12/L Normal 4.00 - 5.20 [facility] Comment on above: Performed By: #### C BCDF #### [address] [address] WBC (Bld) [#/Vol] 8.0 10*3/uL Normal 4.4 - 11.3 [facility] Comment on above: Performed By: #### C BCDF #### [address] [address] CHEST 2 VIEW PA AND LATon CHEST 2 VIEW PA AND LAT Patient Name: KETURAH BARRAZA STUDY: TH CHEST 2 VIEW PA AND LAT; 12/01/2022 3:08 pm INDICATION: chest tight . COMPARISON: 09/20/2017 ACCESSION NUMBER(S): [id number] ORDERING CLINICIAN: SUE MERCADO FINDINGS: There is a gentle dextroscoliosis of the thoracic spine. Cardiomediastinal silhouette is within the limits of normal. Lungs are clear. No infiltrates or pleural effusion. No evidence of pneumothorax. IMPRESSION: A negative examination. Electronically signed by: MAITE DONALD MD [facility] CT HEAD WO CONTRASTon 2022 CT HEAD WO CONTRAST Patient Name: KETURAH BARRAZA STUDY: CT HEAD WO CONTRAST; 12/01/2022 2:43 pm INDICATION: left facial numbness, left arm numbness, chest tight . COMPARISON: None. ACCESSION NUMBER(S): [id number] ORDERING CLINICIAN: SUE MERCADO TECHNIQUE: Contiguous axial CT images were obtained through the head at 3 mm slice thickness without contrast administration. FINDINGS: INTRACRANIAL: The ventricles, sulci and basal cisterns are within normal limits for size and configuration. The booth-white differentiation is intact. There is no mass effect or midline shift. There is no extraaxial fluid collection. There is no intracranial hemorrhage. The calvarium is unremarkable. EXTRACRANIAL: Visualized paranasal sinuses and mastoids are clear. IMPRESSION: No evidence of acute cortical ischemia or intracranial hemorrhage. Electronically signed by: JERMAINE SANDERSON MD [facility] Provider Note - ED v3on 06- Provider Note - ED v3 Provider Note: Chart Review: HISTORY OF PRESENTING ILLNESS KETURAH is a 47 year old Female and was seen by me at 01-Dec-2022 13:07 for a chief complaint of facial numbness (Patient to ED reference left sided facial numbness with slight dizziness that started this morning at 1130 hours.)(1). Triage Information: Most recent Vital Sign Value Date Temp (F): 97.9 12-01-2022 13:03 Temp (C): 36.6 12-01-2022 13:03 Heart Rate (beats/min): 93 12-01-2022 13:03 Respirations (breaths/min): 18 12-01-2022 13:03 SpO2 (%): 97 12-01-2022 13:03 BP Systolic (mm Hg): 132 12-01-2022 13:03 BP Diastolic (mm Hg): 79 12-01-2022 13:03 PAST MEDICAL HISTORY ALLERGIES/INTOLERANCES: No Known Allergies HEALTH HISTORY: No documented data. OUTPATIENT MEDICATIONS: Home Medications Review Status for Reconciliation: N/A Med Status: N/A No documented data. SIGNIFICANT EVENTS: No documented data. CRITICAL CARE RESULTS: Recent Lab Results: I have reviewed these laboratory results: Troponin I, High Sensitivity Trending View [id number] 16:17:00 01-Dec-2022 13:54:00 Troponin I, High Sensitivity<3 <3 Complete Blood Count + Differential 01-Dec-2022 13:54:00 ResultValue White Blood Cell Count 8.0 Red Blood Cell Count 4.74 HGB 13.6 HCT 41.7 MCV 88 MCHC 32.6 PLT 288 RDW-CV 12.4 Neutrophil % 72.8 Immature Granulocytes % 0.3 Lymphocyte % 17.6 Monocyte % 7.4 Eosinophil % 0.5 Basophil % 1.4 Neutrophil Count 5.80 Lymphocyte Count 1.40 Monocyte Count 0.59 Eosinophil Count 0.04 Basophil Count 0.11 H Basic Metabolic Panel 01-Dec-2022 13:54:00 ResultValue Glucose, Serum 101 H NA 136 K 3.8 CL 104 Bicarbonate, Serum 26 Anion Gap, Serum 10 BUN 15 CREAT 1.08 H GFR Female 64 Calcium, Serum 9.0 Radiology Results: Impression: A negative examination. Xray Chest 2 View PA + Lateral [Dec 01 2022 3:27PM] Impression: No evidence of acute cortical ischemia or intracranial hemorrhage. CT Head without Contrast [Dec 01 2022 2:50PM] MDM MDM/ED COURSE: PMH: Reviewed PSH: Reviewed Social History: Reviewed. Allergies reviewed. HPI: This is a 47 year old female with history of anxiety who presents to the ED today with complaints of facial numbness, left arm numbness. She was at work when it started around 1130 this morning. [place] somewhat dizzy. No vision changes. States is mainly on the left side of her face and in her left arm. Improved on ED arrival. No headaches. States under a lot of stress, has been dealing with anxiety since age 19, and is on Trazodone for her anxiety but it makes her too groggy so she doesn't take it. Has trouble sleeping at night. REVIEW OF SYSTEMS: All other systems reviewed and negative except as listed in HPI. PHYSICAL EXAM: GENERAL: Vitals noted, no distress. Alert and oriented x 3. Non-toxic. EENT: TMs clear. Posterior oropharynx unremarkable. EOMI, no nystagmus noted. NECK: Supple. No masses. No midline tenderness. No meningeal signs. CARDIAC: Regular rate, rhythm. No murmurs rubs or gallops. No JVD. PULMONARY: Lungs clear and equal bilaterally. No wheezes rales or rhonchi. No respiratory distress. EXTREMITIES: No peripheral edema. SKIN: No rash. Warm, dry, and intact. NEURO: No focal neurologic deficits. Cranial nerves normal as tested from II through XII. ED COURSE: This patient was seen and examined by myself independently, initially seen in triage. No stroke alert. No evidence of bae's palsy. Will check cardiac labs and CT head/cxr based on symptoms. Labs drawn from triage and patient sent for imaging from triage. Troponin x2 are negative. CT head without evidence of acute cortical ischemia or intracranial hemorrhage. Chest x-ray also negative. CBC and BMP are unremarkable. Patient is reassured. Symptoms gone on repeat evaluation. Recommended PCP care follow-up in the next 2 to 3 days for repeat evaluation, discuss managing her anxiety. Patient verbalized understanding. She discharged home in stable condition with computer instructions given. Differential Diagnoses Considered: Anxiety, CVA, TN, Bae's palsy Escalation of Care: Appropriate for outpatient management Prescription Drug Consideration: None Diagnostic testing considered: Blood work, CT head, chest x-ray, EKG DIAGNOSTIC IMPRESSION: #1 anxiety PROGRESS NOTE EKG Post-Procedure Diagnosis: EKG INTERPRETATION: Impression: EKG interpreted by ED physician Dr Pickering shows SR with rate of 83, sinus arrythmia. Normal axis. LA interval 120. QRS interval 74. QT interval 366. QTc interval 430. Non-specific ST-T wave changes. No acute ischemia or injury pattern. DISPOSITION Diagnosis/Annotation: ED Dx Name:Anxiety Code:F41.9 Disposition: discharged Type: home CONSULT CRITICAL CARE TIME Is this a critically ill patient: no (more content not included)... Normal [facility] Risk Screen - Adult Emergenc yon 12-01-2022 Risk Screen - Adult Emergency Preferred Language: Preferred Language: Preferred Language for Discussing Health Care (patient/designee)Rachael macedo Patient Preferred Pharmacy: Patient Preferred Pharmacy Statement: I have reviewed and updated the patient's preferred pharmacy selection for today's visit. Advanced Directives: Advance Directive/DNRno Advance Directive Information Givenpatient/family declined Family Violence Adult: Abuse Screen: Are you or have you been threatened or abused physically, emotionally, or sexually by anyoneyes Has anyone ever threatened to hurt your family or your petsno Does anyone try to keep you from having/contacting other friends or doing things outside your homeno Do you feel UNSAFE going back to the place where you are livingno Do you feel anyone has exploited or taken advantage of you financially or of your personal propertyno Clinical assessment: Are there any apparent signs of injuries/behaviors that could be related to abuse/neglectno Learning Assessment (Patient): Learning Assessment (Patient): Patient is Able to be Assessed for Learningyes Factors Influencing Readiness to Learnanxiety Factors that Impact Ability to Learnnone Devices/Methods Used to Communicatenone Learning Preferenceswritten material; verbal instruction Cultural Considerationsnone Developmental Considerationsnone Buddhism Considerationsnone Learning Assessment (Other Learner): Learning Assessment (Other Learner): Other learner availableno Pressure Injury/TB/Substance: Pressure Injury: Do you have a coughno Smoking Statusnever smoker Alcohol Usedenies Admission Risk Screen: Significant IndicatorsComplete CAGE: CAGE: Is this an injured patient at a Trauma Center ([facility]/[place]lyri a/Lexa/[place]): no Electronic Signatures: Asuncion Patterson (LOUANN) (Signed 01-Dec-2022 17:22) Authored: Preferred Language, Patient Preferred Pharmacy, Advanced Directives, Family Violence Adult, Learning Assessment (Patient), Learning Assessment (Other Learner), Pressure Injury/TB/Substance, Pressure Injury, CAGE Last Updated: 01-Dec-2022 17:22 by Asuncion Patterson (LOUANN) [facility] TROPONIN I, HIGH SENSITIVITY on 12-01-2022 TROPONIN I, HIGH SENSITIVITY Canceled [facility] Comment on above: Order Comment: TEST TROPONIN I, HIGH SENSITIVITY WAS CANCELLED, 12/01/2022 17:09 Result Comment: . Less than 99th percentile of normal range cutoff- Female and children under 18 years old <14 ng/L; Male <21 ng/L: Negative Repeat testing should be performed if clinically indicated. . Female and children under 18 years old 14-50 ng/L; Male 21-50 ng/L: Consistent with possible cardiac damage and possible increased clinical risk. Serial measurements may help to assess extent of myocardial damage. . >50 ng/L: Consistent with cardiac damage, increased clinical risk and myocardial infarction. Serial measurements may help assess extent of myocardial damage. . NOTE: Children less than 1 year old may have higher baseline troponin levels and results should be interpreted in conjunction with the overall clinical context. . NOTE: Troponin I testing is performed using a different testing methodology at [facility] than at other [facility]. Direct result comparisons should only be made within the same method. Performed By: #### [facility] #### [place] [address] TROPONIN I, HIGH SENSITIVITY <3 Normal 0 - 13 [facility] Comment on above: Result Comment: . Less than 99th percentile of normal range cutoff- Female and children under 18 years old <14 ng/L; Male <21 ng/L: Negative Repeat testing should be performed if clinically indicated. . Female and children under 18 years old 14-50 ng/L; Male 21-50 ng/L: Consistent with possible cardiac damage and possible increased clinical risk. Serial measurements may help to assess extent of myocardial damage. . >50 ng/L: Consistent with cardiac damage, increased clinical risk and myocardial infarction. Serial measurements may help assess extent of myocardial damage. . NOTE: Children less than 1 year old may have higher baseline troponin levels and results should be interpreted in conjunction with the overall clinical context. . NOTE: Troponin I testing is performed using a different testing methodology at [facility] than at other [facility]. Direct result comparisons should only be made within the same method. Performed By: #### [facility] #### [place] [id number] TROPONIN I, HIGH SENSITIVITY <3 Normal 0 - [address] [place] [address] Comment on above: Result Comment: . Less than 99th percentile of normal range cutoff- Female and children under 18 years old <14 ng/L; Male <21 ng/L: Negative Repeat testing should be performed if clinically indicated. . Female and children under 18 years old 14-50 ng/L; Male 21-50 ng/L: Consistent with possible cardiac damage and possible increased clinical risk. Serial measurements may help to assess extent of myocardial damage. . >50 ng/L: Consistent with cardiac damage, increased clinical risk and myocardial infarction. Serial measurements may help assess extent of myocardial damage. . NOTE: Children less than 1 year old may have higher baseline troponin levels and results should be interpreted in conjunction with the overall clinical context. . NOTE: Troponin I testing is performed using a different testing methodology at [facility] than at other [facility]. Direct result comparisons should only be made within the same method. Performed By: #### [facility] #### [facility] [address] [place] [address] Triage - EDon 12-01-2022 Triage - ED Quick Triage: Are You no Have You Given In The Last 6 Weeksno Are You Currently Breastfeedingno The patient and/or guardian verbally acknowledges placement for services into the following (when Urgent Care Service hours are operating):emergency department Chart Review: ARRIVAL INFORMATION Mode of Arrival: private vehicle CHIEF COMPLAINT KETURAH BARRAZA is a Female patient with a chief complaint of facial numbness (Patient to ED reference left sided facial numbness with slight dizziness that started this morning at 1130 hours.). Onset of the Complaint: 01-Dec-2022 11:30 Triage Date/Time: 01-Dec-2022 13:03 VELASQUEZ: 3 Pain Rating (0-10): 5 = Moderate Vital Signs: Temperature: 97.9F ( 36.6C) taken oral Blood Pressure: 132/79 Mean: Heart Rate: 93 Respiratory Rate: 18 Pulse Oximetry: 97% on room air, no respiratory support. Height: 5 feet 2.00 inches. 157.4 CM Weight: 140.2 pounds. Calculated 63.6 kg. (stated) Calculated BMI (kg/m2): 25.671 Calculated BSA (m2) 1.67 [place] Coma Scale: Best Eye Response: (E4) spontaneous Best Motor Response: (M6) obeys commands Best Verbal Response: (V5) oriented Kristie Score: 15 Kristie Assessment Qualifiers: patient not sedated/intubated Cough lasting greater than 3 weeks: no Allergies: no Mask applied: no Last menstrual period: 04-Nov-2022 Patient has homicidal thoughts: no Symptoms Are Negative For: aphasia, ataxia, confusion, diaphoresis, facial droop, headache, numbness, seizure and vomiting. Last Known Well: known Time Last Known Well Date/Time: 01-Dec-2022 11:30 Risk Screens Suicide Risk Screen In the Past Month: Have you wished you were or wished you could go to sleep and not wake up no In the Past Month: Have you had any actual thoughts of killing yourself no In Your Lifetime: Have you ever done anything, started to do anything, or prepared to do anything to end your life no Zavala Fall Scale Screening Has the patient fallen before (or is the patient in the ED as a result of a fall) has not had a fall Does the patient have an impaired gait does not have impaired gait Is the patient cognitively impaired not cognitively impaired Interventions: Zavala Fall Interventions: LOW INTERVENTIONS: *patient oriented to surroundings and call system, * patient/family falls education completed and documented, *patients fall status communicated during bedside handoff, *whiteboard updated, *mode of toileting discussed with patient, *bed in low position with brakes locked, *call light in reach, * non-skid footwear TRAVEL HISTORY Travel History Coronavirus Screening: no exposure or symptoms Travel Exposure History: NO travel to International locations in the past 30 days PAIN Pain Scale Used: MYA Pain Rating (0-10): 5 = Moderate Past Medical History: Past Medical History Reviewedyes Electronic Signatures: Asuncion Patterson (LOUANN) (Signed 01-Dec-2022 17:20) Authored: Quick Triage, Chart Review, Past Medical History Geni Coello (EMT-P) (Signed 01-Dec-2022 13:06) Entered: Risk Screens, Pain, Travel History, Chart Review, Scores Authored: Quick Triage, Risk Screens, Pain, Travel History, Chart Review, Scores Last Updated: 01-Dec-2022 17:20 by Asuncion Patterson (LOUANN) [facility] XR FOOT GENERAL 3V AP/LAT/OB L RIGHTon 06-14-2022 [facility] XR Foot - right AP and Later al and obliqueon 06-14-2022 IMPRESSION: No acute osseous abnormality Fish Trapper: JAMES Transcribe Date/Time: Jun 14 2022 5:59P Dictated by : WEI KRAUS MD This examination was interpreted and the report reviewed and electronically signed by: WEI KRAUS MD on Jun 14 2022 6:01PM [facility] DIVISION OF RADIOLOGY * * *Final Report* * * DATE OF EXAM: Jun 14 2022 5:46PM WOX [id number] - XR FOOT 3V AP/LAT/OBL RT / PROCEDURE REASON: Injury of right foot, initial encounter * * * * Physician Interpretation * * * * EXAMINATION: XR FOOT 3V AP/LAT/OBL RT CLINICAL HISTORY: Right foot trauma Technique: XR FOOT 3V AP/LAT/OBL RT -- RIGHT with 3 views on 3 images Comparison: None RESULT: No acute fracture or dislocation. Joint spaces are maintained. DIVISION OF RADIOLOGY Provider, [facility] - 06/14/2022 * * *Final Report* * * DATE OF EXAM: Jun 14 2022 5:46PM WOX [id number] - XR FOOT 3V AP/LAT/OBL RT / PROCEDURE REASON: Injury of right foot, initial encounter * * * * Physician Interpretation * * * * EXAMINATION: XR FOOT 3V AP/LAT/OBL RT CLINICAL HISTORY: Right foot trauma Technique: XR FOOT 3V AP/LAT/OBL RT -- RIGHT with 3 views on 3 images Comparison: None RESULT: No acute fracture or dislocation. Joint spaces are maintained. IMPRESSION IMPRESSION: No acute osseous abnormality Fish Trapper: [facility] Transcribe Date/Time: Jun 14 2022 5:59P Dictated by : WEI KRAUS MD This examination was interpreted and the report reviewed and electronically signed by: WEI KRAUS MD on Jun 14 2022 6:01PM EST [facility] Radiology Study observation (narrative) [facility] XR Foot - right AP and Later al and obliqueOrdered By: [facility] Provider on 06-14-2022 [facility] Auto Diffon 09-20-2017 Basophils Auto #/vol (Bld) 0.1 E3/mcL Normal 0.0-0.2 [facility] Comment on above: Order Comment: Order Added by Discern Expert. Performed By: #### 2 [id number] ####OLI EricksonQfsVcpm86[address] [place] [address] Basophils/100 WBC Auto (Bld) 1.0 % Normal 0.0-2.0 [facility] Comment on above: Order Comment: Order Added by Discern Expert. Performed By: #### 2 [id number] ####OLI EricksonSuwQmjc5697 [place] [address] Eos Absolute 0.0 E3/mcL Normal 0.0-0.7 [facility] Comment on above: Order Comment: Order Added by Discern Expert. Performed By: #### 2 [id number] ####OLI EricksonLomYhrk1932 [place] [address] Eosinophils/100 leukocytes 0.8 % Normal 0.0-11.0 [facility] Comment on above: Order Comment: Order Added by Discern Expert. Performed By: #### 2 [id number] ####OLI EricksonUyfFned1349 [place] [address] Lymphocytes 1.5 E3/mcL Normal 1.2-3.4 [facility] Comment on above: Order Comment: Order Added by Discern Expert. Performed By: #### 2 [id number] ####OLI EricksonWihHnlf6398 [place] [address] Lymphocytes/100 leukocytes 23.4 % Normal 20.0-55.0 [facility] Comment on above: Order Comment: Order Added by Discern Expert. Performed By: #### 2 [id number] ####OLI EricksonCmaAmgg3425 [place] [address] [place] Absolute 0.3 E3/mcL Normal 0.0-0.7 [facility] Comment on above: Order Comment: Order Added by Discern Expert. Performed By: #### 2 [id number] ####OLI AloMgza8684 [place] [address] Monocytes/100 leukocytes 5.4 % Normal 0.0-10.0 [facility] Comment on above: Order Comment: Order Added by Discern Expert. Performed By: #### 2 [id number] ####OLI EricksonNlnPsnp9983 [place] [address] Neutro Absolute 4.3 E3/mcL Normal 1.4-6.5 [facility] Comment on above: Order Comment: Order Added by Discern Expert. Performed By: #### 2 103939 ####OLI EricksonXlvUkwh8786 [place] [address] Neutro Auto 69.4 % Normal 37.0-75.0 [facility] Comment on above: Order Comment: Order Added by Discern Expert. Performed By: #### 2 [id number] ####OLI EricksonPdrKvrn9003 [place] [address] BMPon 09-20-2017 BUN/Creatinine Ratio 16.7 ratio Normal 5.4-30.0 [facility] Comment on above: Performed By: #### 2 [id number] ####OLI EricksonRwkQnnk4257 [place] [address] Calcium 8.6 mg/dL Normal 8.4-10.2 [facility] Comment on above: Performed By: #### 2 175420 ####OLI [address] [place] [address] Chloride 105 mmol/L Normal 98-107 [facility] Comment on above: Performed By: #### 2 [id number] ####OLI EricksonXjmRfft4293 [place] [address] CO2 25.2 mmol/L Normal 24.0-30.0 [facility] Comment on above: Performed By: #### 2 [id number] ####OLI EricksonRgvXtih2734 [place] [address] Creatinine 0.6 mg/dL Normal 0.6-1.3 [facility] Comment on above: Performed By: #### 2 [id number] ####OLI EricksonQnvExgh7767 [place] [address] Glucose mass conc 93 mg/dL Normal 70-99 [facility] Comment on above: Performed By: #### 2 [id number] ####OLI EricksonEnsFjpm5220 [place] [address] Potassium molar conc 3.5 mmol/L Normal 3.5-5.1 [facility] Comment on above: Performed By: #### 2 240226 ####OLI EricksonCpvMykb4405 [place] [address] Sodium 135 mmol/L Low 136-145 [facility] Comment on above: Performed By: #### 2 332956 ####OLI EricksonCxrEvgo5920 [place] [address] Urea nitrogen 10 mg/dL Normal 7-18 [facility] Comment on above: Performed By: #### 2 451911 ####OLI EricksonQwtMksv6019 [place] [address] CBC w/ Auto Diffon 8 Erythrocyte distribution width Auto Ratio (RBC) 13.3 % Normal 11.5-14.5 [facility] Comment on above: Performed By: #### 2 [id number] ####OLI Bootheo[address] [place] [address] Erythrocytes (RBC) 4.35 E6/mcL Normal 3.90-5.40 [facility] Comment on above: Performed By: #### 2 015136 ####OLI [address] [place] [id number] Hematocrit (HCT) 38.2 % Normal 36.0-48.0 [facility] Comment on above: Performed By: #### 2 [id number] ####OLI EricksonDyeWtki2500 [place] [address] Hemoglobin mass conc (Bld) 13.0 g/dL Normal 12.0-16.0 [facility] Comment on above: Performed By: #### 2 986012 ####OLI EricksonCzbWoxi9013 [place] [address] MCH 29.8 pg Normal 27.0-31.0 [facility] Comment on above: Performed By: #### 2 504337 ####OLI EricksonRvcErck9205 [place] [address] MCHC mass conc (RBC) 33.9 g/dL Normal 33.0-37.0 [facility] Comment on above: Performed By: #### 2 108118 ####OLI EricksonPrwNqjr5856 [place] [address] MCV 87.9 fL Normal 78.0-100.0 [facility] Comment on above: Performed By: #### 2 360615 ####OLI EricksonFgiUmee0190 [place] [address] Platelet mean volume (PMV) 8.1 fL Normal 7.4-11.0 [facility] Comment on above: Performed By: #### 2 [id number] ####OLI DfhPyrk1410 [place] [address] Platelets 239 E3/mcL Normal 130-400 [facility] Comment on above: Performed By: #### 2 083062 ####OLI GpxCuys4384 [place] [address] WBC (Leukocytes) 6.2 E3/mcL Normal 3.6-11.0 [facility] Comment on above: Performed By: #### 2 388114 ####OLI ZztKakl2395 [place] [address] Free T4on 09-20-2017 Thyroxine (T4) free 0.71 ng/dL Normal 0.58-1.64 [facility] Comment on above: Performed By: #### 2 [id number] ####OLI [address]zxfb[address] [place] [address] HhgT5cat 09-20-2017 Hemoglobin A1c/Hemoglobin.total mass fraction (Bld) 4.8 % Normal 4.0-6.3 [facility] Comment on above: Performed By: #### 3 [id number] ####OLI Chemistry Manual [address]jyw[address] [place] [address] TSHon 09-20-2017 Thyroid stimulating hormone (TSH) 2.04 mIU/m Normal 0.30-5.60 [facility] Comment on above: Performed By: #### 2 [id number] ####OLI Hjlmudsd0907 [place] [address] Troponin-Ion 09-20-2017 Troponin I.cardiac mass conc ng/mL Normal .00-.03 [facility] Comment on above: Performed By: #### 2 [id number] ####OLI Yccfmbeo0116 [place] [address] XR Chest 2 Viewson 8 XR Chest 2 Views Exam Date/Time:09/20/2017 09:55 EDTReason for Exam:near syncope;Other (please specify)ReportPROCEDURE : FRONTAL AND LATERAL CHEST RADIOGRAPHS, 09/20/2017 9:45 AMCLINICAL HISTORY: Syncope. Lightheadedness.TECHNIQ UE: 2 views, 2 images.COMPARISON: None.RESULT: Cardiac silhouette and pulmonary vascularity are within normal limits.Lungs are symmetrically inflated and clear. There is no pleural effusion orpneumothorax. Mild gentle dextroscoliotic curvature of the thoracic spine.IMPRESSION:No acute cardiopulmonary process. FINAL REPORT Dictated: 09/20/2017 11:26 am Kaveh Webber MD ASigned (Electronic Signature): 09/20/2017 11:26 amSigned by: Kaveh Webber MD Technologist: [facility] eGFRon 09-20-2017 eGFR (non-black) mL/min/{1.73_m2} [facility] Comment on above: Order Comment: Order added by Discern Expert. Performed By: #### 1 [id number] ####OLI KfuEauj[address] [place] [address] Vital Signs Date Time Vital Sign Value Performing Clinician Facility 03-27-2025 11:42-0400 Body mass index (BMI) [Ratio] 28.22 kg/m2 Radha Gan MD Work Phone: 03-27-2025 11:42-0400 Body weight 72.26 kg Radha Gan MD Work Phone: 03-27-2025 11:42-0400 Diastolic blood pressure 75 mm[Hg] Radha Gan MD Work Phone: 03-27-2025 11:42-0400 Heart rate 74 /min Radha Gan MD Work Phone: 03-27-2025 11:42-0400 Systolic blood pressure 115 mm[Hg] Radha Gan MD Work Phone: 03-14-2025 08:23-0400 Body mass index (BMI) [Ratio] 28.38 kg/m2 Radha Gan MD Work Phone: 03-14-2025 08:23-0400 Body weight 72.67 kg Radha Gan MD Work Phone: 03-14-2025 08:23-0400 Diastolic blood pressure 80 mm[Hg] Radha Gan MD Work Phone: 03-14-2025 08:23-0400 Heart rate 74 /min Radha Gan MD Work Phone: 03-14-2025 08:23-0400 Systolic blood pressure 122 mm[Hg] Radha Gan MD Work Phone: 11-03-2023 09:02-0400 Body height 160 cm Sara Will CNP Work Phone: 11-03-2023 09:02-0400 Body mass index (BMI) [Ratio] 26.57 kg/m2 Sara Will CNP Work Phone: 11-03-2023 09:02-0400 Body weight 68.04 kg Sara Will LATHE SET UP PERSON Work Phone: 10-20-2023 10:20-0400 Body temperature 98.4 [degF] Meng Duckworth Jr., DPM Work Phone: 10-20-2023 10:20-0400 Diastolic blood pressure 75 mm[Hg] Meng Duckworth Jr., DPM Work Phone: 10-20-2023 10:20-0400 Heart rate 81 /min Meng Duckworth Jr., DPM Work Phone: 10-20-2023 10:20-0400 Systolic blood pressure 108 mm[Hg] Meng Duckworth Jr., DPM Work Phone: 08-04-2023 13:24-0500 Body temperature 100.4 [degF] Meng Duckworth Jr., DPM Work Phone: 08-04-2023 13:24-0500 Diastolic blood pressure 69 mm[Hg] Meng Duckworth Jr., DPM Work Phone: 08-04-2023 13:24-0500 Heart rate 80 /min Meng Gucci Dickerson, DPM Work Phone: 08-04-2023 13:24-0500 Systolic blood pressure 102 mm[Hg] Meng Salazaranshu Branch., DPM Work Phone: 12-01-2022 20:14-0400 Diastolic blood pressure 76 mm[Hg] Lakeshia Adeiff Other Phone: [facility] 12-01-2022 20:14-0400 Heart rate 88 /min Lakeshia Mollylliff Other Phone: [facility] 12-01-2022 20:14-0400 Respiratory rate 16 /min Lakeshia Adeiff Other Phone: [facility] 12-01-2022 20:14-0400 SaO2% (BldA) [Mass fraction] 98 % Lakeshia Adeiff Other Phone: [facility] 12-01-2022 20:14-0400 Systolic blood pressure 125 mm[Hg] Lakeshia Mollylliff Other Phone: [facility] 12-01-2022 15:03-0400 Body height 157.4 cm Lakeshia Adeiff Other Phone: [facility] 12-01-2022 15:03-0400 Body temperature 97.88 [degF] Lakeshia Mollylliff Other Phone: [facility] 12-01-2022 15:03-0400 Body weight 63.6 kg Lakeshia Mollylliff Other Phone: [facility] 06-14-2022 16:50-0500 Body temperature 99.39 [degF] Hayden Raymundo APRN.LATHE SET UP PERSON Work Phone: [facility] 06-14-2022 16:50-0500 Body weight 63.05 kg Hayden Raymundo APRN.LATHE SET UP PERSON Work Phone: [facility] 06-14-2022 16:50-0500 Diastolic blood pressure 62 mm[Hg] Hayden Raymundo MISSILE AND MISSILE CHECKOUT TECHNICIAN.LATHE SET UP PERSON Work Phone: [facility] 06-14-2022 16:50-0500 Heart rate 78 /min Hayden Raymundo MISSILE AND MISSILE CHECKOUT TECHNICIAN.LATHE SET UP PERSON Work Phone: [facility] 06-14-2022 16:50-0500 Respiratory rate 16 /min Hayden Raymundo MISSILE AND MISSILE CHECKOUT TECHNICIAN.LATHE SET UP PERSON Work Phone: [facility] 06-14-2022 16:50-0500 SaO2% (BldA) [Mass fraction] 99 % Hayden Raymundo MISSILE AND MISSILE CHECKOUT TECHNICIAN.LATHE SET UP PERSON Work Phone: [facility] 06-14-2022 16:50-0500 Systolic blood pressure 102 mm[Hg] Hayden Raymundo MISSILE AND MISSILE CHECKOUT TECHNICIAN.LATHE SET UP PERSON Work Phone: [facility] 07-25-2016 10:43-0500 BMI (Body Mass Index) 24.62 kg/m2 [facility] Work Phone: 07-25-2016 10:43-0500 Body weight 63.05 kg [facility] Work Phone: 07-25-2016 10:43-0500 BP Diastolic 60 mm[Hg] [facility] Work Phone: Comment on above: Patient Position: Sitting; Cuff Location : Left Arm; Cuff Size: Standard 07-25-2016 10:43-0500 BP Systolic 120 mm[Hg] [facility] Work Phone: Comment on above: Patient Position: Sitting; Cuff Location : Left Arm; Cuff Size: Standard 07-25-2016 10:43-0500 BSA (Body Surface Area) 1.66 m2 [facility] Work Phone: 07-25-2016 10:43-0500 Height 160.02 cm [facility] Work Phone: 07-25-2016 10:43-0500 Pulse (Heart Rate) 70 /min [facility] Work Phone: Comment on above: Pattern: Regular 07-25-2016 10:43-0500 Pulse Oximetry 99 % [facility]ilie [facility] Work Phone: Comment on above: Room air 07-25-2016 10:43-0500 Respiratory Rate 18 /min Emilie Das [facility] Work Phone: Comment on above: Pattern: Unlabored 02-26-2016 07:44-0400 BMI (Body Mass Index) 23.43 kg/m2 Emilie Das [facility] Work Phone: 02-26-2016 07:44-0400 Body weight 59.99 kg Emilie Das [facility] Work Phone: 02-26-2016 07:44-0400 BP Diastolic 62 mm[Hg] Emilie Das [facility] Work Phone: Comment on above: Patient Position: Sitting; Cuff Location : Left Arm; Cuff Size: Standard 02-26-2016 07:44-0400 BP Systolic 98 mm[Hg] Emilie Das [facility] Work Phone: Comment on above: Patient Position: Sitting; Cuff Location : Left Arm; Cuff Size: Standard 02-26-2016 07:44-0400 BSA (Body Surface Area) 1.62 m2 Emilie Das [facility] Work Phone: 02-26-2016 07:44-0400 Height 160.02 cm Emilie Das [facility] Work Phone: 02-26-2016 07:44-0400 Pulse (Heart Rate) 93 /min [facility] Work Phone: Comment on above: Pattern: Regular 02-26-2016 07:44-0400 Pulse Oximetry 99 % Emilie Das [facility] Work Phone: Comment on above: Room air 02-26-2016 07:44-0400 Respiratory Rate 18 /min Emilie Das [facility] Work Phone: Comment on above: Pattern: Unlabored Encounters Encounter Date Encounter Type Care Provider Facility Start: 03-27-2025 End: 03-27-2025 Office outpatient visit 15 minutes Radha Gan MD Work Phone: [facility] Comment on above: Left ovarian cyst (P rimary Dx); Pelvic pain in female Start: 03-27-2025 End: 03-31-2025 ambulatory RADHASANTINO GAN [facility] Start: 03-14-2025 End: 03-14-2025 ambulatory RADHA LUNDBERG MALIK [facility] Start: 03-14-2025 End: 03-14-2025 Initial preventive medicine new patient 40-64yrs Radha Gan MD Work Phone: [facility] Comment on above: Encounter for gyneco logical examination (general) (routine) with abnormal findings (Primary Dx); Pelvic pain in female; Encounter for screening mammogram for malignant neoplasm of breast; Screening for malignant neoplasm of cervix Start: 03-14-2025 End: 03-14-2025 Patient encounter status Radha Gan MD Work Phone: Start: 02-10-2025 End: 02-10-2025 Transcribe Orders Neal Champion MD Work Phone: [facility] Comment on above: Tachycardia (Primary Dx) Start: 01-02-2024 End: 01-02-2024 Orders Only Aston Paiz RN [facility] Comment on above: Encounter for screen ing for cardiovascular disorders (Primary Dx) Start: 11-28-2023 End: 11-28-2023 ambulatory MERYL ASCENCIO Facility:[facility] Start: 11-28-2023 End: 11-28-2023 Patient encounter procedure Meryl Ascencio MD Work Phone: [facility] Comment on above: Trigger thumb of rig ht hand (Primary Dx); Trigger index finger of right hand; Right wrist tendonitis Start: 11-28-2023 End: 11-28-2023 ambulatory MENG DUCKWORTH JR. [facility] Start: 11-24-2023 End: 11-24-2023 Office outpatient visit 10 minutes Sara Britt Will LATHE SET UP PERSON Work Phone: [facility] Comment on above: Pain of right thumb (Primary Dx) Start: 11-03-2023 End: 11-03-2023 ambulatory MENG GUCCI [facility] Start: 11-03-2023 End: 11-03-2023 Subsequent hospital visit by physician [facility] Comment on above: Dislocation of tarso metatarsal joint of left foot, sequela Start: 11-03-2023 End: 11-03-2023 Office outpatient new 45 minutes Sara Britt Will LATHE SET UP PERSON Work Phone: [facility] Comment on above: Pain of right thumb (Primary Dx) Start: 10-20-2023 End: 10-20-2023 Office outpatient visit 15 minutes Meng Salazarlon DPM Work Phone: [facility] Comment on above: Lisfranc's dislocati on, left, sequela (Primary Dx) Start: 08-04-2023 End: 08-04-2023 Office outpatient visit 15 minutes Meng Salazarlon DPM Work Phone: [facility] Comment on above: Stress fracture of l eft foot, initial encounter (Primary Dx) Start: 07-03-2023 End: 07-03-2023 Subsequent hospital visit by physician Rosario [facility] Work Phone: Radiology Comment on above: Foot pain, left [M79 .672] Start: 07-03-2023 End: 07-03-2023 ambulatory LAKESHIA WANG Facility:[facility] Start: 05-01-2023 End: 05-01-2023 ambulatory [facility] Work Phone: Start: 05-01-2023 End: 05-01-2023 Patient encounter procedure [facility], [facility] Work Phone: Start: 04-14-2023 End: 04-14-2023 ambulatory PROVIDER NOT IN SYSTEM [facility] Start: 04-12-2023 End: 04-13-2023 ambulatory LAKESHIA WANG [facility] Start: 12-01-2022 End: 12-01-2022 Emergency department patient visit Sue Mercado [facility] Emergency 13 Start: 06-14-2022 End: 06-14-2022 [facility] Comment on above: Injury of right foot , initial encounter [S99.921A] Start: 06-14-2022 End: 06-14-2022 Patient encounter procedure Hayden King EMILLATHE SET UP PERSON Work Phone: [facility] Comment on above: Sinobronchitis (Prim naeem Dx); Injury of right foot, initial encounter Start: 05-03-2022 ambulatory Lakeshia Wang Facility: [facility] Start: 09-20-2017 End: 09-20-2017 Emergency department patient visit Arron Delroy Facility:[facility] Start: 07-25-2016 End: 07-25-2016 Office outpatient visit 10 minutes Emilie Das [facility] Start: 02-26-2016 End: 02-26-2016 Office outpatient new 20 minutes Emilie Das [facility] Start: 11-03-1982 Evaluation and manag ement of inpatient [facility]- Procedures Date Procedure Procedure Detail Performing Clinician Start: 03-14-2025 Microscopic observat ion [Identifier] in Cervix by Cyto stain Radha Gan MD Work Phone: Start: 11-24-2023 Injection 1 tendon sheath/ligament aponeurosis Sara Will LATHE SET UP PERSON Work Phone: Start: 11-08-2023 Arthrocentesis aspir &/inj small jt/bursa w/o us Sara Will LATHE SET UP PERSON Work Phone: Start: 11-03-2023 MR FOOT LEFT WO IV CONTRAST MENG DUCKWORTH Start: 11-03-2023 Mri lower extrem oth /thn jt w/o contr matrl Lakeshia Wang MD Work Phone: Start: 08-04-2023 Radex foot complete minimum 3 views Meng Duckworth DPM Work Phone: Start: 07-03-2023 Radex foot complete minimum 3 views Jason Dunn MISSILE AND MISSILE CHECKOUT TECHNICIAN.LATHE SET UP PERSON Work Phone: Start: 05-01-2023 Ultrasonography of abdomen Start: 04-12-2023 Mammography Mengbenjamin whitaker Jr., DPM Work Phone: Start: 12-01-2022 End: 12-01-2022 EKG impression Sue Mercado Start: 06-14-2022 Radex foot complete minimum 3 views Hayden Raymundo MISSILE AND MISSILE CHECKOUT TECHNICIAN.LATHE SET UP PERSON Work Phone: Start: 08-02-2011 Lipid 1996 panel - S ananda or Carlton Ascencio MD Work Phone: Plan of Treatment Date Care Activity Detail Author Start: 03-14-2028 Screening for malign ant neoplasm of cervix Start: 03-14-2026 History and physical examination, annual for health maintenance Wellness Visit Start: 02-15-2026 Zoster Vaccines (1 o f 2) Zoster Vaccines (1 of 2) [facility] Start: 12-01-2025 Diabetes Screening Diabetes Screenin g [facility] Start: 06-11-2025 End: 06-11-2025 Patient encounter procedure 06/11/2025 8:00 AM EST [facility] [address] [place] [address] Neal Champion MD [address] [place] [address] Junior Laws MD [address] [place] [address] [facility] Start: 05-09-2025 End: 05-09-2025 Patient encounter procedure 05/09/2025 9:30 AM EST Office Visit [facility] [address] [facility] [address] [place] [address] Radha Gan MD [address] [place] [id number] [facility] Ob[facility]ne[facility] Start: 05-09-2025 End: 05-09-2025 Professional / ancillary services management 05/09/2025 9:00 AM EST Ancillary Procedure [facility] [address] [phone] Radha Gan MD [address] [place] [address] [facility] Start: 05-08-2025 End: 03-27-2026 US Pelvis transvaginal US Transvaginal Imaging Routine Left ovarian cyst Expected: 05/08/2025, Expires: 03/27/2026 Work Phone: Comment on above: Expected: 05/08/2025 , Expires: 03/27/2026 Start: 03-27-2025 End: 03-27-2025 Patient encounter procedure 03/27/2025 12:30 PM EDT Office Visit [facility] Gynecology [address] [phone] Radha Gan MD [address] [place] [address] [facility] Start: 03-27-2025 End: 03-27-2025 Professional / ancillary services management 03/27/2025 11:30 AM EDT Ancillary Procedure [facility]ne[facility] [address] [place] [phone] Radha Gan MD [address] [place] [address] [facility] Start: 02-24-2025 COVID-19 Vaccine ( season) COVID-19 Vaccine ( season) Start: 02-24-2025 Influenza vaccination Influenza Vacc ine (#1) Start: 06-05-2024 DTaP/Tdap/Td Vaccine s (2 - Td or Tdap) DTaP/Tdap/Td Vaccines (2 - Td or Tdap) [facility] Start: 06-05-2024 Tetanus vaccination Tetanus: Every 1 0yrs Start: 06-05-2024 Urine microalbumin profile [facility] Start: 05-20-2024 End: 05-20-2024 Patient encounter procedure 05/20/2024 10:20 AM EST Office Visit Cardiology [address] [place] [phone] Daryn Dunbar MD [address] [facility] [place], [place] [phone] Heart Issues (Web Request) Cardiology Comment on above: Heart Issues (Web Re quest) Start: 04-12-2024 Screening for malign ant neoplasm of breast Start: 02-25-2024 Covid-19 Vaccine ( season) Covid-19 Vaccine ( season) [facility] Start: 02-25-2024 Covid-19 Vaccine ( season) Covid-19 Vaccine ( season) [facility] Start: 02-25-2024 Influenza vaccination [facility] Start: 01-09-2024 End: 01-09-2024 Patient encounter procedure 01/09/2024 10:20 AM EDT Office Visit [facility] [address] [address] [place] [address] [place] [address] rt hand thumb and index finger trigger [facility] Comment on above: rt hand thumb and in dex finger trigger Start: 01-03-2024 End: 01-03-2024 Patient encounter procedure 01/03/2024 1:10 PM EDT Office Visit [facility] [address] [place] [address] Mala Krause MD [address] [facility] [address] [facility] [address] [place] [address] [facility] Start: 12-01-2023 End: 12-01-2023 Patient encounter procedure 12/01/2023 11:15 AM EDT Office Visit Physician [facility] [address] [place] [address] Meng Duckworth Jr., DPM [address] [place] [address] Physician [facility] Start: 10-27-2023 End: 10-19-2024 MR Foot - left WO contrast MR Foot Left Without Contrast Imaging Routine Lisfranc's dislocation, left, sequela Expected: 10/27/2023, Expires: 10/19/2024 Work Phone: Comment on above: Expected: 10/27/2023 , Expires: 10/19/2024 Start: 02-24-2023 COVID-19 Vaccine ( season) COVID-19 Vaccine ( season) Start: 02-24-2023 Influenza vaccination Sequenti al Influenza Vaccine (#1) Start: 06-14-2022 End: 06-28-2022 Influenza virus A and B RNA and SARS-CoV-2 (COVID-19) N gene panel - Respiratory specimen by AUTUMN with probe detection COVID WITH FLUA+B, ROUTINE Microbiology Routine Sinobronchitis Expected: 06/14/2022, Expires: 06/28/2022 [facility] Work Phone: Comment on above: Expected: 06/14/2022 , Expires: 06/28/2022 Start: 02-24-2022 Influenza vaccination INFLUENZA (#1) [facility] Start: 02-15-2021 COLOGUARD (FIT-DNA) COLOGUARD (FIT-D NA) [facility] Start: 02-15-2021 Colonoscopy COLONOSCOPY [facility] Start: 02-15-2021 COLORECTAL CANCER SCREENING COLORECTAL CANCER SCREENING [facility] Start: 02-15-[address] COLONOGRAPHY [facility] Start: 02-15-2021 DIABETES SCREEN DIABETES SCREEN [facility] Start: 02-15-2021 FECAL OCCULT BLOOD FECAL OCCULT BLOO D [facility] Start: 02-15-2021 Lipid panel Lipid Screening [facility] Start: 02-15-2021 LIPID SCREEN LIPID SCREEN [facility] Start: 02-15-2021 Screening for malign ant neoplasm of colon [facility] Start: 02-15-2021 SIGMOIDOSCOPY SIGMOIDOSCOPY [facility] Start: 07-25-2016 Procedure Education Eprescribe d prescriptions (G8553) [facility] Work Phone: Start: 02-26-2016 Procedure Education Eprescribe d prescriptions (G8553) [facility] Work Phone: Start: 02-26-2016 Provider Instruction s for Treatment Follow up in 1 month- javad meds and do general med [facility] Work Phone: Start: 2016 Mammography MAMMOGRAM [facility] Start: 09-23-2008 PAP TESTING PAP TESTING [facility] Start: 09-23-2008 Screening for malign ant neoplasm of cervix Pap Testing [facility] Start: 09-23-2006 Screening for malign ant neoplasm of cervix Cervical Cancer Screening [facility] Start: 02-15-2006 HPV TESTING HPV TESTING [facility] Start: 02-15-2006 Screening for malign ant neoplasm of cervix Start: 07-24-2004 Hepatitis B Vaccines (2 of 3 - 19+ 3-dose series) Hepatitis B Vaccines (2 of 3 - 19+ 3-dose series) [facility] Start: 02-15-1997 Screening for malign ant neoplasm of cervix Start: 02-15-1994 Hepatitis C screening Hepatitis C Sc reening Start: 02-15-1994 HIV SCREENING HIV SCREENING [facility] Start: 02-15-1994 HIV screening HIV Screening [facility] Start: 02-15-1991 HIV screening HIV Screening [facility] Start: 1988 Depression screening using PHQ-9 (Patient Health Questionnaire 9) score Start: 02-15-1979 History and physical examination, annual for health maintenance Wellness Visit Start: 02-15-1977 MMR Vaccines (1 of 1 - Standard series) MMR Vaccines (1 of 1 - Standard series) [facility] Start: 1976 COVID-19 VACCINE (#1) COVID-19 VACCI NE (#1) [facility] Start: 1976 HIV screening HIV Screening [facility] Start: 1976 Lipid panel Lipid Panel [facility] Start: 1976 Screening for malign ant neoplasm of colon Start: 1976 Yearly Adult Physical Yearly Adult P hysical [facility] End: 01-01-2025 12 lead ECG ECG 12 Lead ECG Routine Encounter for screening for cardiovascular disorders 3 Occurrences starting 01/02/2024 until 01/01/2025 Work Phone: Comment on above: 3 Occurrences starti ng 01/02/2024 until 01/01/2025 End: 05-14-2026 MG Breast - bilateral Screening Mammography Screening [facility] Bilateral Imaging Routine Encounter for screening mammogram for malignant neoplasm of breast 1 Occurrences starting 03/14/2025 until 05/14/2026 Comment on above: 1 Occurrences starti ng 03/14/2025 until 05/14/2026 Microscopic examinat ion of vaginal Papanicolaou smear Thinprep Pap Smear Pathology and Cytology Routine Screening for malignant neoplasm of cervix 03/14/2025 9:16 AM EDT End: 03-14-2026 US Pelvis transvaginal US Transvaginal Imaging Routine Pelvic pain in female 1 Occurrences starting 03/14/2025 until 03/14/2026 Work Phone: Comment on above: 1 Occurrences starti ng 03/14/2025 until 03/14/2026 End: 12-27-2024 US Upper extremity - right US HAND/FINGER RIGHT Radiology Routine Trigger thumb of right hand Trigger index finger of right hand 1 Occurrences starting 11/28/2023 until 12/27/2024 [facility] Comment on above: 1 Occurrences starti ng 11/28/2023 until 12/27/2024 End: 12-27-2024 US Wrist - right US WRIST RIGHT Radiology Routine Right wrist tendonitis 1 Occurrences starting 11/28/2023 until 12/27/2024 [facility] Work Phone: Comment on above: 1 Occurrences starti ng 11/28/2023 until 12/27/2024 Immunizations Immunization Date Immunization Notes Care Provider Blair quinn 06-05-2014 tetanus toxoid, redu yola diphtheria toxoid, and acellular pertussis vaccine, adsorbed Hayden Raymundo APRN.LATHE SET UP PERSON Work Phone: [facility] 06-26-2004 hepatitis B vaccine, adult dosage Hayden Raymundo APRN.LATHE SET UP PERSON Work Phone: [facility] Work Phone: 04-26-2004 tetanus and diphther ia toxoids, adsorbed, preservative free, for adult use (2 Lf of tetanus toxoid and 2 Lf of diphtheria toxoid) Hayden Raymundo APRN.LATHE SET UP PERSON Work Phone: [facility] Work Phone: Payers Date Payer Category Payer [facility] [[email or web address]] TOMMIE CAREN UE/PREF/HMO/PPO [id number] 2022 Self-pay 2020 Managed Care (unspecified) [employer] HMO/NTWK/OACCESS/OA+/POS [id number] 2020 Private Health Insurance [id number] 2017 Unknown 2017 Unknown [id number] 2017 Private Health Insurance 1976 Unknown [id number] 1976 Unknown [id number] 1976 Unknown [id number] [id number] 1976 Unknown [id number] [id number] 1976 Unknown [id number] [id number] 1976 Unknown [id number] [id number] 1976 Unknown [id number] [id number] 1976 Unknown [id number] [id number] 1976 Unknown [id number] [id number] Private Health Insurance [facility] [id number] Unknown [id number] Social History Date Type Detail Facility Start: 06-14-2022 End: 03-27-2025 Caffeine Use Caffeine Use [facility] Work Phone: Comment on above: qd none Exercise History: Exercise History: [facility] Work Phone: Living Situation: Living Situation: [facility] Work Phone: Number of Child (age 0-17) Dependents: Number of Child (age 0-17) Dependents: [facility] Work Phone: Tobacco use: Tobacco use: [facility] Work Phone: Start: 06-14-2022 [facility] Work Phone: Start: 05-26-1990 End: 05-26-2005 History of tobacco use Current smoker [facility] Work Phone: Start: 05-26-1990 End: 05-26-2005 History of tobacco use Cigarette Smoker [facility] Work Phone: Start: 06-14-2022 End: 10-20-2023 Tobacco use and exposure Smokeless tobacco non-user [facility] Work Phone: Start: 06-14-2022 End: 07-03-2023 Alcohol intake Current drinker of alcohol (finding) [facility] Start: 08-17-2011 Alcohol Comment Occasional mix ed drinks 2-3 per month [facility] Start: 1975 Sex Assigned At Not on file C [facility] Start: 03-11-2021 End: 08-04-2023 Tobacco smoking consumption unknown [facility] Start: 12-29-2019 With Family [facility] Start: 1975 Sex Assigned At Female W [facility] Start: 08-03-2023 Gender identity Identifies as female gender (finding) Start: 08-03-2023 Sexual orientation Heterosexual (fin ding) Start: 10-20-2023 [facility] Never smoked tobacco Start: 10-20-2023 End: 03-27-2025 Alcohol intake Lifetime non-drinker (finding) Start: 10-20-2023 End: 03-27-2025 Gender identity Not on file [facility] Work Phone: Start: 10-24-2023 End: 11-03-2023 Exposure to SARS-CoV-2 (event) Not sure [facility] National Score (1-100), lower number is lower risk 51 [facility] Clinical Notes 08-17-2011 to 03-27-2025 Radha Gan MD - 03/27/2025 12:16 PM Radha Polanco MD - 03/14/2025 8:26 AM Sara Blankenship CNP - 11/28/2023 4:59 PM EDTPatient Instructions Note Date & Type Note Facility 03-27-2025 Note Subjective Patient ID: Keturah Barraza is a 50 y.o. . HPI 50 y.o. presents for US f/u for pelvic pain for past few months, especially with intercourse. Pain is mild and not using pain meds. Pelvic US: uterus retroverted measuring 8 x 4.9 x 5.3 cm with adenomyosis appearance. Left septated ovarian cyst 2.3 x 1.5 x 1.4 cm. Small amount free fluid. The following portions of the patient's history were reviewed and updated as appropriate: allergies, current medications, past family history, past medical history, past social history, past surgical history, and problem list. Review of Systems Constitutional: Negative for fatigue and fever. Genitourinary: Positive for menstrual problem, pelvic pain and vaginal bleeding. Objective Physical Exam Constitutional: General: She is not in acute distress. Appearance: Normal appearance. Neurological: Mental Status: She is alert. Assessment/Plan: Diagnoses and all orders for this visit: Left ovarian cyst - appears benign will follow with repeat scan 6-7 wks. Pt agreeable. - US Transvaginal; Future Pelvic pain in female - discussed difficulty with true dx of adenomyosis; discussed med/hormonal options such as progestin IUD, pt declines at this time. Pt ok with f/u US 6 wks for plan Radha Gan MD AUTHENTICATED BY RADHA GAN, ON 03/27/2025 12:42:28 [facility] 03-27-2025 History of Present illness Narrative Subjective Patient ID: Keturah Barraza is a 50 y.o. . HPI 50 y.o. presents for US f/u for pelvic pain for past few months, especially with intercourse. Pain is mild and not using pain meds. Pelvic US: uterus retroverted measuring 8 x 4.9 x 5.3 cm with adenomyosis appearance. Left septated ovarian cyst 2.3 x 1.5 x 1.4 cm. Small amount free fluid. The following portions of the patient's history were reviewed and updated as appropriate: allergies, current medications, past family history, past medical history, past social history, past surgical history, and problem list. Review of Systems Constitutional: Negative for fatigue and fever. Genitourinary: Positive for menstrual problem, pelvic pain and vaginal bleeding. Objective Physical Exam Constitutional: General: She is not in acute distress. Appearance: Normal appearance. Neurological: Mental Status: She is alert. Assessment/Plan: Diagnoses and all orders for this visit: Left ovarian cyst - appears benign will follow with repeat scan 6-7 wks. Pt agreeable. - US Transvaginal; Future Pelvic pain in female - discussed difficulty with true dx of adenomyosis; discussed med/hormonal options such as progestin IUD, pt declines at this time. Pt ok with f/u US 6 wks for plan Radha Gan MD documented in this encounter 03-14-2025 Note ANNUAL EXAM Patient Name: Keturah Barraza : 1975 MR #: [id number] SUBJECTIVE: Keturah Barraza is a 50 y.o. here for an annual exam today. C/o newer onset pelvic pain, right at midline, mostly with intercourse. Going on for 2-3 months. Describes as dull cramping. She has no significant family history of cancer and does not meet guidelines for genetic testing. Her last pap was several yrs ago and was normal. She is not currently using contraception. She uses no method. She is currently sexually active. Her sexual preference is male. Denies STIs. Denies sexual abuse. Denies physical abuse. Denies mental abuse. Review of Systems Review of Systems Constitutional: Negative for chills and fever. Respiratory: Negative for shortness of breath. Cardiovascular: Negative for chest pain. Gastrointestinal: Negative for abdominal pain, constipation and diarrhea. Genitourinary: Positive for dyspareunia and pelvic pain. Negative for dysuria and vaginal bleeding. Neurological: Negative for headaches. Psychiatric/Behavioral: Negative for dysphoric mood. All other systems reviewed and are negative. 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 Admits to a history of abnormal cervical cytology. Past Medical History Past Medical History: Diagnosis Date Anxiety Past Surgical History History reviewed. No pertinent surgical history. Family History Her Family History Problem Relation Age of Onset Breast cancer Paternal Grandmother 40 Medications She has a current medication list which includes the following prescription(s): doxycycline hyclate, lorazepam, and prednisone. Allergies Allergies: Moxifloxacin Social History She reports that she has never smoked. She has never used smokeless tobacco. She reports that she does not drink alcohol and does not use drugs. Counseling given: Not Answered Tobacco Use History[1] reports that she has never smoked. She has never used smokeless tobacco. Health maintenance: Mammogram: due; last 2022 Dexa: N/A Lipid screening: up to date Pt states her current diet goals are to maintain her weight. Immunization status: up to date and documented. OBJECTIVE: Body mass index is 28.38 kg/m . Vitals: 03/14/25 0823 BP: 122/80 Pulse: 74 Weight: 72.7 kg (160 lb 3.2 oz) Physical Examination: Physical Exam Vitals reviewed. Exam conducted with a mechanism inspector present. Constitutional: Appearance: Normal appearance. She is not ill-appearing. Chest: Breasts: Right: Normal. No mass. Left: Normal. No mass. Abdominal: Palpations: Abdomen is soft. Tenderness: There is no abdominal tenderness. There is no guarding or rebound. Genitourinary: General: Normal vulva. Vagina: Normal. Cervix: Normal. Uterus: Normal. Adnexa: Right adnexa normal and left adnexa normal. Lymphadenopathy: Upper Body: Right upper body: No supraclavicular, axillary or pectoral adenopathy. Left upper body: No supraclavicular, axillary or pectoral adenopathy. Neurological: Mental Status: She is alert and oriented to person, place, and time. Psychiatric: Mood and Affect: Mood normal. ASSESSMENT/PLAN: Keturah Barraza 50 y.o. presents for her annual exam today. Annual Exam - Pap smear with cotesting done today - Reviewed diet and exercise recommendations - Discussed recommendations on breast self-awareness - Screening mammo ordered - Pelvic pain, dyspareunia - pelvic US ordered, f/u after completed Radha Gan MD [1] Tobacco & Smokeless: Tobacco Use Smoking status: Never Smokeless tobacco: Never AUTHENTICATED BY RADHA GAN, ON 03/17/2025 20:24:28 [facility] 03-14-2025 History of Present illness Narrative ANNUAL EXAM Patient Name: Keturah Barraza : 1975 MR #: [id number] SUBJECTIVE: Keturah Barraza is a 50 y.o. here for an annual exam today. C/o newer onset pelvic pain, right at midline, mostly with intercourse. Going on for 2-3 months. Describes as dull cramping. She has no significant family history of cancer and does not meet guidelines for genetic testing. Her last pap was several yrs ago and was normal. She is not currently using contraception. She uses no method. She is currently sexually active. Her sexual preference is male. Denies STIs. Denies sexual abuse. Denies physical abuse. Denies mental abuse. Review of Systems Review of Systems Constitutional: Negative for chills and fever. Respiratory: Negative for shortness of breath. Cardiovascular: Negative for chest pain. Gastrointestinal: Negative for abdominal pain, constipation and diarrhea. Genitourinary: Positive for dyspareunia and pelvic pain. Negative for dysuria and vaginal bleeding. Neurological: Negative for headaches. Psychiatric/Behavioral: Negative for dysphoric mood. All other systems reviewed and are negative. 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 Admits to a history of abnormal cervical cytology. Past Medical History Past Medical History: Diagnosis Date Anxiety Past Surgical History History reviewed. No pertinent surgical history. Family History Her Family History Problem Relation Age of Onset Breast cancer Paternal Grandmother 40 Medications She has a current medication list which includes the following prescription(s): doxycycline hyclate, lorazepam, and prednisone. Allergies Allergies: Moxifloxacin Social History She reports that she has never smoked. She has never used smokeless tobacco. She reports that she does not drink alcohol and does not use drugs. Counseling given: Not Answered Tobacco Use History[1] reports that she has never smoked. She has never used smokeless tobacco. Health maintenance: Mammogram: due; last 2022 Dexa: N/A Lipid screening: up to date Pt states her current diet goals are to maintain her weight. Immunization status: up to date and documented. OBJECTIVE: Body mass index is 28.38 kg/m . Vitals: 03/14/25 0823 BP: 122/80 Pulse: 74 Weight: 72.7 kg (160 lb 3.2 oz) Physical Examination: Physical Exam Vitals reviewed. Exam conducted with a mechanism inspector present. Constitutional: Appearance: Normal appearance. She is not ill-appearing. Chest: Breasts: Right: Normal. No mass. Left: Normal. No mass. Abdominal: Palpations: Abdomen is soft. Tenderness: There is no abdominal tenderness. There is no guarding or rebound. Genitourinary: General: Normal vulva. Vagina: Normal. Cervix: Normal. Uterus: Normal. Adnexa: Right adnexa normal and left adnexa normal. Lymphadenopathy: Upper Body: Right upper body: No supraclavicular, axillary or pectoral adenopathy. Left upper body: No supraclavicular, axillary or pectoral adenopathy. Neurological: Mental Status: She is alert and oriented to person, place, and time. Psychiatric: Mood and Affect: Mood normal. ASSESSMENT/PLAN: Keturah Barraza 50 y.o. presents for her annual exam today. Annual Exam - Pap smear with cotesting done today - Reviewed diet and exercise recommendations - Discussed recommendations on breast self-awareness - Screening mammo ordered - Pelvic pain, dyspareunia - pelvic US ordered, f/u after completed Radha Gan MD [1] Tobacco & Smokeless: Tobacco Use Smoking status: Never Smokeless tobacco: Never documented in this encounter 11-28-2023 History of Present illness Narrative Associated Order(s): Tendon Sheath Injection: R thumb A1 Post-Procedure Diagnose(s): Pain of right thumb [facility] [address] [facility] [address] [facility] [id number] Chief Complaint Patient presents with Right Hand - Pain, Follow-up Keturah Barraza returns to the office today for follow-up on the right thumb. A couple of weeks ago I injected the CMC joint for pain at the base of the thumb. She states that she is not having pain that is radiating up into the tip of the thumb. She is also having some pain when she pushes in that fat pad, she is tender to palpate. We briefly discussed a possible tendon sheath injection if the first injection did not provide her with adequate relief. She is here today and would like to try the other injection. She denies any injury since her last office visit. The patient's past medical history, surgical history, social history, family history, medications and allergies were reviewed with the patient today and are available in the chart for further review. Allergies Allergen Reactions Moxifloxacin Other (See Comments) Insomnia insomnia Current Outpatient Medications: doxycycline hyclate (PERIOSTAT) 20 MG tablet, Take 1 (one) tablet (20 mg total) by mouth 2 (two) times a day with meals ., Disp: , Rfl: LORazepam (ATIVAN) 0.5 MG tablet, Take 1 (one) tablet (0.5 mg total) by mouth 2 (two) times a day as needed ., Disp: , Rfl: predniSONE (DELTASONE) 50 MG tablet, Take 1 (one) tablet (50 mg total) by mouth daily ., Disp: 5 tablet, Rfl: 0 Past Medical History: Diagnosis Date Anxiety History reviewed. No pertinent surgical history. Social History Socioeconomic History Marital status: Tobacco Use Smoking status: Never Smokeless tobacco: Never Substance and Sexual Activity Alcohol use: Never Drug use: Never ROS: Review of Systems Musculoskeletal: Positive for arthralgias, joint swelling and myalgias. Imaging: No new imaging Assessment/Plan: Injection to the tendon sheath of the A1 jessee site as this is where she is very tender to palpate. I did this without complications and she tolerated this well. I will see her back in the office in 2 weeks if there is no improvement. Unfortunately she is right-handed and does a lot of computer work and is not able to rest or decrease the use of the right thumb. Tendon Sheath Injection: R thumb A1 on 11/24/2023 8:35 AM Indications: pain, tendon swelling and diagnostic Details: 25 G needle Medications: 20 mg triamcinolone acetonide 40 mg/mL Outcome: tolerated well, no immediate complications Procedure, treatment alternatives, risks and benefits explained, specific risks discussed. Consent was given by the patient. Immediately prior to procedure a time out was called to verify the correct patient, procedure, equipment, learning support resource room teacher and site/side marked as required. Patient was prepped and draped in the usual sterile fashion. documented in this encounter 11-28-2023 Instructions Meryl Ascencio MD - 11/28/2023 2:52 PM EDT Images from the original note were not included. Ultrasound Appointment Scheduling To schedule an ultrasound appointment, please call [phone]. After you schedule the ultrasound, and have your date set, please directly contact my office at [phone] to schedule a follow up appointment. We will not schedule a follow-up on the same day of ultrasound, due to us needing to review the radiologist's interpretation and personally review the ultrasound images ourselves. Use Voltaren (diclofenac sodium) topical gel 1% over the counter 3-4 times a day. This medication was previously prescription but is now available [id number] at most retail pharmacies. documented in this encounter [facility] 11-28-2023 Note HNO ID: [id number] Author: MERYL ASCENCIO MD Service: ? Author Type: Physician Type: Progress Notes Filed: 11/28/2023 15:53 Note Text: CHIEF COMPLAINT: Keturah Barraza is a 48 year old female who presents today for new evaluation of right hand finger pain. HISTORY OF PRESENT ILLNESS: She presents with acute right thumb and index finger pain for the the past month. She was seen by another provider at ([facility] Will C[facility]) where she was evaluated twice over the past month. She has had a CMC injection about 3 weeks ago and then a A1 jessee injection about 5 days ago (the second injection was not yet documented in the medical record that I could access, so this is a presumed A1 jessee injection). Notes from the visit were reviewed through Care Everywhere. She has had hand pain for several years on the volar aspect of the bilateral hands and wrists. Has had pain daily that starts a few hours into the shift, will improve as the evening progresses. No pain on days that she does not work. However, about 4-5 weeks ago she developed pain in her thumb with locking up. No injury or trauma. Pain was radiating into the first finger and across her palm. Was getting swelling into the hand. Patient is right hand dominant. She notes no neck pain, no radiation of shoulder pain, and no numbness or tingling noted of the upper extremity. Will get some intermittent numbness, but nothing waking her up at night. No weakness in her hand; no dropping things. Patient notes mechnical symptoms of triggering of the thumb. Treatments so far have included medication (steroid package-50mg - was unable tolerate as it kept her up), injection (steroid injection to the CMC joint and trigger thumb injection), and the assistive use of a thumb splint. No symptoms on the left side. 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 PAIN EVALUATION 11/28/2023 1416 Pain Level: 4 when it locks it can be a 12/03 Pain Location: Hand-Right thumb and index finger Description: Sharp;Aching Duration Amount of Time: 1 Duration Units: Months Frequency: Continuous constant ache all the time Intervention/Comfort measure: Exercise;Splinting cortisone injection REVIEW OF SYSTEMS: Constitutional: patient denies any recent fever or significant change in weight Cardiovascular: patient denies any chest pain at rest Respiratory: patient denies any shortness of breath or cough Gastrointestinal: patient denies any current abdominal discomfort Integumentary: patient denies any recent skin changes Musculoskeletal: as noted in the HPI Neurologic: as noted in the HPI Endocrine: patient denies a current diagnosis of diabetes Hematologic/Lymphatic: patient denies any easily bleeding, any recent infection and denies any recent observable lymph node enlargement Psychologic: negative for any recent depression or anxiety issues SOCIAL HISTORY: Tobacco Use: 1 packs/day, for 15 years. Quit 05/26/2005. Types: Cigarettes FAMILY HISTORY: FAMILY HISTORY Problem Relation Age of Onset Hypertension Father None Mother None Brother None Brother None Sister Diabetes Maternal Grandfather Heart Paternal Grandfather Heart Paternal Grandmother Coronary Artery Disease Father onset age 60 Stroke Father onset age 50s ALLERGIES: ALLERGIES Allergen Reactions Avelox [Moxifloxaci* Intolerance Insomnia PAST MEDICAL HISTORY: PAST MEDICAL HISTORY Diagnosis Date Acne 06/09/2015 [facility] Actinic Damage///Sun-Damaged Skin 04/28/2009 Bronchitis, not specified as acute or chronic Asthmatic. DEPRESSIVE DISORDER NEC 05/12/2008 Dysplasia of cervix, unspecified Female infertility of unspecified origin 03/14/2006 Dr. Lemus Generalized anxiety disorder Irregular menstrual cycle Irregular periods Lumbar disc herniation with radiculopathy 09/14/2011 Dr. Pride for injections Variants of migraine, not elsewhere classified, without mention of intractable migraine without mention of status migrainosus PHYSICAL EXAMINATION: Patient's vitals and nursing notes were reviewed. Vitals: Last menstrual period 02/17/2016. There is no height or weight on file to calculate BMI. General Appearance: Well appearing, alert, in no acute distress, well-hydrated, and well nourished Body Habitus: well nourished and no acute distress Skin: Skin color, texture, turgor normal, no suspicious rashes or lesions noted Psychiatric: Mood and affect are appropriate, patient is oriented to time, place and person Cardiovascular: Pedal pulses and radial pulses normal, no signs of upper or lower extremity edema Respiratory: No respiratory distress, no audible wheezing, no labored breathing, symmetric thoracic excursion Neurologic: Sensation is grossly intact Lymphatic: No lymph node enlargement noted in the examined area Gait: Normal, the patient did not have trouble getting (more content not included)... [facility] 11-28-2023 History of Present illness Narrative Images from the original note were not included. CHIEF COMPLAINT: Keturah Barraza is a 48 year old female who presents today for new evaluation of right hand finger pain. HISTORY OF PRESENT ILLNESS: She presents with acute right thumb and index finger pain for the the past month. She was seen by another provider at ([facility]ra[facility] Will C[facility]) where she was evaluated twice over the past month. She has had a CMC injection about 3 weeks ago and then a A1 jessee injection about 5 days ago (the second injection was not yet documented in the medical record that I could access, so this is a presumed A1 jessee injection). Notes from the visit were reviewed through Care Everywhere. She has had hand pain for several years on the volar aspect of the bilateral hands and wrists. Has had pain daily that starts a few hours into the shift, will improve as the evening progresses. No pain on days that she does not work. However, about 4-5 weeks ago she developed pain in her thumb with locking up. No injury or trauma. Pain was radiating into the first finger and across her palm. Was getting swelling into the hand. Patient is right hand dominant. She notes no neck pain, no radiation of shoulder pain, and no numbness or tingling noted of the upper extremity. Will get some intermittent numbness, but nothing waking her up at night. No weakness in her hand; no dropping things. Patient notes mechnical symptoms of triggering of the thumb. Treatments so far have included medication (steroid package-50mg - was unable tolerate as it kept her up), injection (steroid injection to the CMC joint and trigger thumb injection), and the assistive use of a thumb splint. No symptoms on the left side. 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 PAIN EVALUATION 11/28/2023 1416 Pain Level: 4 when it locks it can be a 12/03 Pain Location: Hand-Right thumb and index finger Description: Sharp;Aching Duration Amount of Time: 1 Duration Units: Months Frequency: Continuous constant ache all the time Intervention/Comfort measure: Exercise;Splinting cortisone injection REVIEW OF SYSTEMS: Constitutional: patient denies any recent fever or significant change in weight Cardiovascular: patient denies any chest pain at rest Respiratory: patient denies any shortness of breath or cough Gastrointestinal: patient denies any current abdominal discomfort Integumentary: patient denies any recent skin changes Musculoskeletal: as noted in the HPI Neurologic: as noted in the HPI Endocrine: patient denies a current diagnosis of diabetes Hematologic/Lymphatic: patient denies any easily bleeding, any recent infection and denies any recent observable lymph node enlargement Psychologic: negative for any recent depression or anxiety issues SOCIAL HISTORY: Tobacco Use: 1 packs/day, for 15 years. Quit 05/26/2005. Types: Cigarettes FAMILY HISTORY: FAMILY HISTORY Problem Relation Age of Onset Hypertension Father None Mother None Brother None Brother None Sister Diabetes Maternal Grandfather Heart Paternal Grandfather Heart Paternal Grandmother Coronary Artery Disease Father onset age 60 Stroke Father onset age 50s ALLERGIES: ALLERGIES Allergen Reactions Avelox [Moxifloxaci* Intolerance Insomnia PAST MEDICAL HISTORY: PAST MEDICAL HISTORY Diagnosis Date Acne 06/09/2015 [facility] Actinic Damage///Sun-Damaged Skin 04/28/2009 Bronchitis, not specified as acute or chronic Asthmatic. DEPRESSIVE DISORDER NEC 05/12/2008 Dysplasia of cervix, unspecified Female infertility of unspecified origin 03/14/2006 Dr. Lemus Generalized anxiety disorder Irregular menstrual cycle Irregular periods Lumbar disc herniation with radiculopathy 09/14/2011 Dr. Pride for injections Variants of migraine, not elsewhere classified, without mention of intractable migraine without mention of status migrainosus PHYSICAL EXAMINATION: Patient's vitals and nursing notes were reviewed. Vitals: Last menstrual period 02/17/2016. There is no height or weight on file to calculate BMI. General Appearance: Well appearing, alert, in no acute distress, well-hydrated, and well nourished Body Habitus: well nourished and no acute distress Skin: Skin color, texture, turgor normal, no suspicious rashes or lesions noted Psychiatric: Mood and affect are appropriate, patient is oriented to time, place and person Cardiovascular: Pedal pulses and radial pulses normal, no signs of upper or lower extremity edema Respiratory: No respiratory distress, no audible wheezing, no labored breathing, symmetric thoracic excursion Neurologic: Sensation is grossly intact Lymphatic: No lymph node enlargement noted in the examined area Gait: Normal, the patient did not have trouble getting onto the exam table. Right Hand & Wrist Examination of the right wrist, hand and fingers revealed the following: Inspection:normal appearance, no joint deformity or swelling and no missing or misshapen digits Palpation: tenderness to palpation over A1 jessee of the right thumb and mild pain over the A1 jessee of the right index finger, tenderness over the volar aspect of the wrist over the extensor tendons, Range of Motion: Finger ROM: normal ROM of all joints of all fingers of both hands Wrist Flexion: normal ROM when compared to the contralateral side Wist Extension: normal ROM when compared to the contralateral side Wrist Ulnar deviation: normal ROM when compared to the contralateral side Wrist Radial Deviation: normal ROM when compared to the contralateral side Supination: normal supination when compared to the contralateral side Pronation: normal pronation when compared to the contralateral side Elbow ROM: normal ROM of the elbow compared to the contraleteral side Muscle Strength: Wrist extension (C6): 5/5 Wrist flexion (C7): 5/5 -pain with resisted wrist flexion Neurologic: Dorsal thumb (radial nerve): Normal sensation to light touch Index finger (median nerve): Normal sensation to light touch 5th finger (ulnar nerve): Normal sensation to light touch Tinel Sign: percussion of the median nerve at the carpal tunnel was negative Carpal compression Test: was negative Additional testing: CMC grind: no pain or crepitance noted Lizbeth's test: no pain with testing Trigger examination: examination of the metacarpalphalangeal (MCP) of the thumb of the right hand showed fullness the A1 jessee and pain at the A1 jessee Resisted wrist flexion: Recreated pain IMAGING: Previous imaging performed on 11/03/2023 at on 11/03/2023, and available in the [facility] health record, showed no acute osseous abnormality. The actual x-rays were able to be reviewed through Care Everywhere. CLINICAL IMPRESSION / ASSESSMENT: (M65.311) Trigger thumb of right hand (primary encounter diagnosis) (M65.321) Trigger index finger of right hand (M77.8) Right wrist tendonitis Right hand pain with a history of a trigger thumb of the right thumb. Unable to cause triggering on exam today but exquisite tenderness over the A1 jessee. I do not think that there is any carpal tunnel as she has no numbness or tingling, change in strength. She does have pain with resisted wrist flexion making wrist tendinitis more likely. At this time, we will treat conservatively as noted below. RECOMMENDATION / PLAN: -A1 jessee trigger finger injection has already occurred about 5 days ago. Advised that this may take 2 to 3 weeks to start working and received maximal benefit. No additional injections or medication to be provided today. -Oval 8 splints provided for both the thumb and index finger. She has a thumb spica's brace that she uses at home. Advised to use a thumb spica brace as well as the index oval 8 splint over the next 3 weeks nocturnally and use the oval 8 splints on her thumb and index finger during the day. She may then transition in the next 3 weeks to just utilizing bracing with the oval 8 splints at night. -Recommend using Voltaren gel as needed for pain relief. -Musculoskeletal ultrasound ordered to better assess her wrist flexor tendons. Follow up: six weeks Films prior to visit: Musculoskeletal ultrasound Patient verbalizes understanding of the topics we discussed today and agrees with the treatment plan as detailed above. Meryl Ascencio MD [facility] documented in this encounter [facility] 11-08-2023 History of Present illness Narrative Associated Order(s): SM Jt Injection/Arthrocentesis: R thumb MCP Post-Procedure Diagnose(s): Pain of right thumb [facility] [address] [facility] [address] [facility] [id number] Chief Complaint Patient presents with Right Hand - Pain Keturah Barraza, 48 year old female with right hand pain. She didn't have an injury. She is having pain at the base of the thumb which then goes into the index finger and recently its going across the palm of her hand. She isn't having any numbness or tingling into the fingers. Its just pain in the thumb with motion and use. The patient's past medical history, surgical history, social history, family history, medications and allergies were reviewed with the patient today and are available in the chart for further review. Allergies Allergen Reactions Moxifloxacin Other (See Comments) Insomnia insomnia Current Outpatient Medications: doxycycline hyclate (PERIOSTAT) 20 MG tablet, Take 1 (one) tablet (20 mg total) by mouth 2 (two) times a day with meals ., Disp: , Rfl: LORazepam (ATIVAN) 0.5 MG tablet, Take 1 (one) tablet (0.5 mg total) by mouth 2 (two) times a day as needed ., Disp: , Rfl: Past Medical History: Diagnosis Date Anxiety No past surgical history on file. Social History Socioeconomic History Marital status: Tobacco Use Smoking status: Never Smokeless tobacco: Never Substance and Sexual Activity Alcohol use: Never Drug use: Never ROS: Review of Systems Constitutional: Negative for activity change and fatigue. HENT: Negative for congestion, hearing loss and trouble swallowing. Eyes: Negative for visual disturbance. Respiratory: Negative for chest tightness and shortness of breath. Cardiovascular: Negative for chest pain and palpitations. Gastrointestinal: Negative for abdominal pain, diarrhea, nausea and vomiting. Endocrine: Negative for polydipsia, polyphagia and polyuria. Genitourinary: Negative for decreased urine volume, difficulty urinating and hematuria. Musculoskeletal: Positive for arthralgias and myalgias. Negative for joint swelling. Skin: Negative for color change, rash and wound. Allergic/Immunologic: Negative for immunocompromised state. Neurological: Negative for dizziness, weakness, light-headedness and numbness. Hematological: Does not bruise/bleed easily. Psychiatric/Behavioral: Negative for confusion and sleep disturbance. The patient is not nervous/anxious. PE: Physical Exam Constitutional: Appearance: She is well-developed. HENT: Head: Normocephalic. Eyes: Pupils: Pupils are equal, round, and reactive to light. Cardiovascular: Rate and Rhythm: Normal rate and regular rhythm. Pulmonary: Effort: Pulmonary effort is normal. Breath sounds: Normal breath sounds. Abdominal: General: Bowel sounds are normal. Palpations: Abdomen is soft. Musculoskeletal: General: Tenderness present. Normal range of motion. Cervical back: Normal range of motion and neck supple. Skin: General: Skin is warm and dry. Neurological: Mental Status: She is alert and oriented to person, place, and time. ORTHO: Right Hand Exam Tenderness The patient is experiencing tenderness in the snuff box. Range of Motion Wrist Extension: normal Flexion: normal Pronation: normal Supination: normal Hand MP Thumb: abnormal Muscle Strength The patient has normal right wrist strength (with pain at the snuff box). Tests Phalen s Sign: negative Tinel's sign (median nerve): negative Lizbeth's test: positive Other Erythema: absent Scars: absent Sensation: normal Pulse: present Imaging: R Hand: No acute fracture or dislocation. Early degeneration in the CMC joint. Assessment/Plan: After examination and reviewing of the patient x-ray images, we discussed treatment options for the hand. I did offer her a cortisone injection to the R CMC joint which she gladly accepted. I did this without complications and she tolerated this well. I will see her back in 2 weeks if there is no improvement. SM Jt Injection/Arthrocentesis: R thumb MCP Performed by: Sara Will CNP Authorized by: Sara Will CNP CPT 18513 - Small Joint Arthrocentesis: Consent given by: Patient Time out: Immediately prior to the procedure a time out was called Physician or proceduralist has discussed critical or nonroutine steps, procedure duration and anticipated blood loss: Yes Supporting Documentation: Indications: Pain, joint swelling and diagnostic evaluation Procedure Details: Location: Thumb Site: R thumb MCP Prep: patient was prepped and draped in usual sterile fashion Needle size: 25 G Approach: Dorsal Medications: 20 mg triamcinolone acetonide 40 mg/mL Anesthetic used:: Lidocaine 1% Anesthetic amount (mL): 1 Patient tolerance: Patient tolerated the procedure well with no immediate complications documented in this encounter 10-20-2023 History of Present illness Narrative Foot pain Patient is a pleasant 48-year-old female following up today for left midfoot pain. She states that she is really just not progressing the way that she thinks that she ought to. She still has general midfoot soreness and pain as well as lateral foot and ankle pain. Did compliantly previously wear her fracture boot but is just not improving at the rate that she believes she should. Physical Vascular: DP PT pulses are easily palpable 2-4. CFT is fair minimal edema. Derm: No ecchymosis no open wounds no ulcers no rashes no deep nodules. Neuro: Light touch is normal Babinski's is normal. Musculoskeletal: Muscle strength is 5 out of 5 with fair tone. Can easily wiggle toes. Still with quite a bit of pain to the second metatarsal base and the first met second met cuneiform joint. Can easily wiggle toes otherwise. Updated x-rays: No apparent fracture today is substantially improved however if there is still any clinical concern consider advanced imaging. Assessment plan: Patient is a pleasant 48-year-old female with subtle midfoot pain concerning for Lisfranc's dislocation. -At this time, did order an MRI to better work differential especially in light of her failure to fully improve after her injury. Follow-up on MRI in the next 2 weeks. documented in this encounter 08-04-2023 History of Present illness Narrative Left stress fracture follow-up. Patient is a pleasant 48-year-old female following up today on the left foot stress fracture follow-up. She states that things are going so-so. The boot irritates her ankle so she quit wearing after 3 weeks and sent off for. 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 States specifically getting the cafeteria is pretty painful as it is a long walk. Physical Vascular: DP PT pulses are easily palpable 2 out of 4. CFT is normal mild forefoot edema. Nonpitting. Neuro: Light touch is normal Babinski's is normal. Musculoskeletal: Muscle strength is 5 out of 5 with fair tone. Can easily wiggle toes. Still with much pain across the second metatarsal neck left side to the third and fourth. Updated x-rays taken: Clear and obvious oblique fracture across the second metatarsal neck. Assessment and plan: Patient is a pleasant 48-year-old female with second metatarsal stress fracture. -At this time I did ask her to continue the cam boot for 2 more weeks to transition to nonweightbearing in a knee scooter she states that she will go back to the cam boot for 2 weeks despite it feeling uncomfortable to her ankle. At this point can follow-up as needed but does need to wear this for 2 weeks. If still painful in the middle of August return for repeat radiographs and/or CT scan. documented in this encounter 07-03-2023 History of Present illness Narrative Radiology Service Progress Note PATIENT NAME: Keturah Barraza DATE OF SERVICE: July 03, 2023 TIME: 5:38 PM PATIENT IDENTITY VERIFICATION COMPLETED USING TWO (2) IDENTIFIERS: Name and Date of confirmed by patient verbally. FALL SCREENING: Has the patient had 2 falls in the last year or 1 fall with injury or currently using an Ambulatory Assistive Device (Walker, Cane, Wheelchair, Crutches, etc.)? No PATIENT GENDER DATA: Female. status: : No status: NO. PATIENT RELEVANT IMPLANT DATA REVIEWED: Not Applicable RADIOLOGY DEPARTMENT: General X-ray: Exam(s) Completed: Lower Extremity X-Ray(s): Foot, Left PERIPHERAL IV DATA: Not applicable SIGNED BY: ALISSON Machado) July 03, 2023 5:38 PM documented in this encounter [facility] 07-03-2023 Note HNO ID: [id number] Author: JOCELYNE NORIEGA RT (R) Service: Radiology Author Type: Technologist Type: Progress Notes Filed: 07/03/2023 17:46 Note Text: Radiology Service Progress Note PATIENT NAME: Keturah Barraza DATE OF SERVICE: July 03, 2023 TIME: 5:38 PM PATIENT IDENTITY VERIFICATION COMPLETED USING TWO (2) IDENTIFIERS: Name and Date of confirmed by patient verbally. FALL SCREENING: Has the patient had 2 falls in the last year or 1 fall with injury or currently using an Ambulatory Assistive Device (Walker, Cane, Wheelchair, Crutches, etc.)? No PATIENT GENDER DATA: Female. status: : No status: NO. PATIENT RELEVANT IMPLANT DATA REVIEWED: Not Applicable RADIOLOGY DEPARTMENT: General X-ray: Exam(s) Completed: Lower Extremity X-Ray(s): Foot, Left PERIPHERAL IV DATA: Not applicable SIGNED BY: RT Jeannette(R) July 03, 2023 5:38 PM [facility] 07-03-2023 Note HNO ID: [id number] Author: JASON DUNN APRN.LATHE SET UP PERSON Service: ? Author Type: Nurse Practitioner Type: Progress Notes Filed: 07/03/2023 18:09 Note Text: Subjective HPI Nontoxic-appearing female presents urgent care chief plaint left foot pain. Duration of symptoms 5 days. Associated symptoms left foot pain. Patient states she jumped out of her 's truck. When she struck the ground she felt a sharp pain in her left foot. States she did not land funny or twisted ankle. Pain is mainly around her third fourth metatarsal. States pain has slightly improved but is stayed persistent. Rates pain 4 out of 10. Worse with walking. No numbness no tingling. No decrease sensation. Past medical history prescription medication use allergies reviewed. .Patient presents with: Pain (foot): left x 5 days, stepped out of a truck PAST MEDICAL HISTORY Diagnosis Date Acne 06/09/2015 [facility]. Actinic Damage///Sun-Damaged Skin 04/28/2009 Bronchitis, not specified as acute or chronic Asthmatic. DEPRESSIVE DISORDER NEC 05/12/2008 Dysplasia of cervix, unspecified Female infertility of unspecified origin 03/14/2006 Dr. Lemus Generalized anxiety disorder Irregular menstrual cycle Irregular periods Lumbar disc herniation with radiculopathy 09/14/2011 Dr. Pride for injections Variants of migraine, not elsewhere classified, without mention of intractable migraine without mention of status migrainosus PAST SURGICAL HISTORY Procedure Laterality Date COLPOSCOPY CERVIX UPPER/ADJACENT VAGINA 2000 Colposcopy Mild dysplasia PAST SURGICAL HISTORY OF 1980s LEFT TENDON HEEL REPAIR PAST SURGICAL HISTORY OF Benign cyst removed from the left face ALLERGIES Avelox [Moxifloxacin Hcl] MEDICATIONS doxycycline 20 mg tablet traZODone (DESYREL) 50 mg tablet Take 50 mg by mouth daily at bedtime. LORazepam (ATIVAN) 0.5 mg tab Take 1 tablet by mouth twice daily as needed. FOR ANXIETY. sertraline (ZOLOFT) 50 mg tablet Take 1 tablet by mouth every evening. FAMILY HISTORY Problem Relation Age of Onset Hypertension Father None Mother None Brother None Brother None Sister Diabetes Maternal Grandfather Heart Paternal Grandfather Heart Paternal Grandmother Coronary Artery Disease Father onset age 60 Stroke Father onset age 50s Social History Tobacco Use Smoking status: Former Packs/day: 1.00 Years: 15.00 Additional pack years: 0.00 Total pack years: 15.00 Types: Cigarettes Quit date: 05/26/2005 Years since quittin.1 Smokeless tobacco: Never Substance Use Topics Alcohol use: Yes Comment: Occasional mixed drinks 2-3 per month Drug use: No BP 110/72 Pulse 68 Temp 36.7 ?C (98.1 ?F) Resp 16 Wt 70.8 kg (156 lb) LMP 02/17/2016 (Exact Date) SpO2 99% Review of Systems Constitutional: Negative for chills, fever and malaise/fatigue. HENT: Negative for congestion, ear discharge, ear pain, sinus pain and sore throat. Eyes: Negative for blurred vision, pain, discharge and redness. Respiratory: Negative for cough, hemoptysis, sputum production, shortness of breath, wheezing and stridor. Cardiovascular: Negative for chest pain. Gastrointestinal: Negative for abdominal pain, diarrhea, nausea and vomiting. Musculoskeletal: Positive for joint pain. Negative for falls and myalgias. Skin: Negative for itching and rash. Neurological: Negative for dizziness and headaches. Objective Physical Exam Constitutional: General: She is not in acute distress. Appearance: She is not toxic-appearing. HENT: Head: Normocephalic. Nose: Nose normal. Eyes: Pupils: Pupils are equal, round, and reactive to light. Cardiovascular: Rate and Rhythm: Normal rate. Pulmonary: Effort: Pulmonary effort is normal. No respiratory distress. Musculoskeletal: Cervical back: Normal range of motion. Left ankle: Normal. Left Achilles Tendon: No tenderness. Left foot: Normal range of motion and normal capillary refill. Tenderness and bony tenderness present. No swelling or deformity. Normal pulse. Feet: Feet: Comments: Pain with palpation the highlighted area. No erythema edema. No breaks in skin. Neurovascular intact. Skin: General: Skin is warm and dry. Neurological: General: No focal deficit present. Mental Status: She is alert. ASSESSMENT/PLAN: 1. Foot pain, left - ICD9: 729.5, ICD10: M79.672 - XR FOOT GENERAL 3V AP/LAT/OBL LEFT IMPRESSION: No evidence of acute fracture or malalignment. No acute fractures or malalignments noted. Treat as sprain versus contusion. Encouraged to follow-up with podiatry send today symptoms are improving. Patient was educated on supportive therapies. Patient will follow up with primary care provider as needed. Patient was instructed to immediately proceed to emergency room for any new, worsening, or symptoms lasting longer than anticipated. The patient's clinical presentation is otherwise unremarka (more content not included)... [facility] 06-14-2022 Miscellaneous Notes Addended by: SARAH SANDOVAL on: 06/14/2022 07:30 PM Modules accepted: Orders documented in this encounter [facility] 06-14-2022 History of Present illness Narrative Radiology Service Progress Note PATIENT NAME: Keturah Barraza DATE OF SERVICE: June 14, 2022 TIME: 5:38 PM PATIENT IDENTITY VERIFICATION COMPLETED USING TWO (2) IDENTIFIERS: Name and Date of confirmed by patient verbally. FALL SCREENING: Has the patient had 2 falls in the last year or 1 fall with injury or currently using an Ambulatory Assistive Device (Walker, Cane, Wheelchair, Crutches, etc.)? No PATIENT GENDER DATA: Female. status: : No status: NO. PATIENT RELEVANT IMPLANT DATA REVIEWED: Yes RADIOLOGY DEPARTMENT: General X-ray: Exam(s) Completed: Lower Extremity X-Ray(s): Foot, Right and Wt. Bearing PERIPHERAL IV DATA: Not applicable SIGNED BY: RT Kemi(R) June 14, 2022 5:38 PM documented in this encounter [facility] 06-14-2022 History of Present illness Narrative Images from the original note were not included. Subjective HPI HPI Keturah Barraza is a 47 year old female who presents today for CC of cough, sinus pressure/congestion, fatigue. This started 5 days ago, getting worse. Has tried otc medication for relie. Symptoms are worsened by nothing. Risk factors sick exposures at work. Nonsmoker. Kicked table 2 days ago, foot hurts where was broken in past. Denies numbness/tingling of right foot. .Patient presents with: Nasal Congestion: drainage, fatigue x 5 days, right foot pain x 2 days, hit leg of table PAST MEDICAL HISTORY Diagnosis Date Acne 06/09/2015 [facility] Actinic Damage///Sun-Damaged Skin 04/28/2009 Bronchitis, not specified as acute or chronic Asthmatic. DEPRESSIVE DISORDER NEC 05/12/2008 Dysplasia of cervix, unspecified Female infertility of unspecified origin 03/14/2006 Dr. Lemus Generalized anxiety disorder Irregular menstrual cycle Irregular periods Lumbar disc herniation with radiculopathy 09/14/2011 Dr. Pride for injections Variants of migraine, not elsewhere classified, without mention of intractable migraine without mention of status migrainosus PAST SURGICAL HISTORY Procedure Laterality Date COLPOSCOPY CERVIX UPPER/ADJACENT VAGINA 2000 Colposcopy Mild dysplasia PAST SURGICAL HISTORY OF 1980s LEFT TENDON HEEL REPAIR PAST SURGICAL HISTORY OF Benign cyst removed from the left face ALLERGIES Avelox [Moxifloxacin Hcl] MEDICATIONS Doxycycline Monohydrate 150 mg cap Take 1 capsule by mouth once daily. From [facility]. traZODone (DESYREL) 50 mg tablet Take 50 mg by mouth daily at bedtime. LORazepam (ATIVAN) 0.5 mg tab Take 1 tablet by mouth twice daily as needed. FOR ANXIETY. (Patient not taking: Reported on 06/14/2022) sertraline (ZOLOFT) 50 mg tablet Take 1 tablet by mouth every evening. FAMILY HISTORY Problem Relation Age of Onset Hypertension Father None Mother None Brother None Brother None Sister Diabetes Maternal Grandfather Heart Paternal Grandfather Heart Paternal Grandmother Coronary Artery Disease Father onset age 60 Stroke Father onset age 50s Social History Tobacco Use Smoking status: Former Packs/day: 1.00 Years: 15.00 Pack years: 15.00 Types: Cigarettes Quit date: 05/26/2005 Years since quittin.0 Smokeless tobacco: Never Substance Use Topics Alcohol use: Yes Comment: Occasional mixed drinks 2-3 per month Drug use: No Review of Systems Constitutional: Positive for chills, fever and malaise/fatigue. HENT: Positive for congestion and sore throat. Negative for ear pain and nosebleeds. Respiratory: Positive for cough. Negative for shortness of breath and wheezing. Cardiovascular: Negative for chest pain. Gastrointestinal: Negative for diarrhea and vomiting. Musculoskeletal: Negative for neck pain. Skin: Negative for itching and rash. Objective Blood pressure 102/62, pulse 78, temperature 37.4 C (99.4 F), resp. rate 16, weight 63 kg (139 lb), last menstrual period 02/17/2016, SpO2 99 %. Physical Exam Constitutional: General: She is not in acute distress. Appearance: She is not toxic-appearing or diaphoretic. HENT: Head: Normocephalic and atraumatic. Mouth/Throat: Lips: Cheney. Mouth: Mucous membranes are moist. Pharynx: Uvula midline. Posterior oropharyngeal erythema (light) present. No pharyngeal swelling, oropharyngeal exudate or uvula swelling. Cardiovascular: Rate and Rhythm: Normal rate and regular rhythm. Heart sounds: Normal heart sounds, S1 normal and S2 normal. Pulmonary: Effort: Pulmonary effort is normal. Breath sounds: Normal breath sounds. Musculoskeletal: Feet: Lymphadenopathy: Cervical: No cervical adenopathy. Right cervical: No superficial cervical adenopathy. Left cervical: No superficial cervical adenopathy. Neurological: Mental Status: She is alert and oriented to person, place, and time. Gait: Gait is intact. ASSESSMENT/PLAN: 1. Sinobronchitis - ICD9: 473.9, 490, ICD10: J32.9, J40 (primary diagnosis) Start prednisone, if no better or worse in 3-5 days fill take atb rx - Supportive care with plenty of fluids, rest, and analgesia prn. - Follow up in 3-5 days if symptoms persist or worsen. - PREDNISONE 20 MG TABLET - DOXYCYCLINE MONOHYDRATE 100 MG TABLET 2. Injury of right foot, initial encounter - ICD9: 959.7, ICD10: S99.921A -no bony abnormality noted on xray -Rest, Ice, Compression, Elevation discussed -follow up with primary care if symptoms persist/worsen in 10-14 days - XR FOOT GENERAL 3V AP/LAT/OBL RIGHT IMPRESSION: No acute osseous abnormality Dictated by : MD Hayden WOOD APRN.LATHE SET UP PERSON documented in this encounter [facility] 08-17-2011 History of Past i llness Narrative Problem Noted Date Resolved Date Excessive or frequent menstruation 08/17/2011 06/09/2015 Abdominal pain, left lower quadrant 08/17/2011 06/09/2015 INTRADERMAL NEVUS///Benign Neoplasm of Eyelid 08/04/2011 IDN MOLE/ Benign Neopl.Skin: R Prox Inner thigh 04/28/2009 08/04/2011 R/O Neoplasm Uncertain Behavior of Skin 04/28/20 09 08/04/2011 Skin tag 04/28/2009 08/04/2011 Solar lentigo 04/28/2009 08/04/2011 Actinic Damage///Sun-Damaged Skin 04/28/2009 08/04/2011 Female infertility of unspecified origin 006 08/04/2011 Overview: Dr. Lemus documented as of this encounter (statuses as of 06/14/2022) [facility] note* Diagnosis Sinobronchitis- Primary Unspecified sinusitis (chronic) Injury of right foot, initial encounter documented in this encounter [facility] noteNo assessment information availableW[facility] Work Phone: Evaluation note* Diagnosis Stress fracture of left foot, initial encounter- [facility] Diagnosis Lisfranc's dislocation, left, sequela- Primary [facility]* Diagnosis Dislocation of tarsometatarsal joint of left foot, sequela documented in this encounter [facility] Work Phone: Evaluation note* Diagnosis Pain of right thumb- Primary [facility]* Diagnosis Pain of right thumb- Primary [facility]* Diagnosis Trigger thumb of right hand- Primary Trigger finger (acquired) Trigger index finger of right hand Trigger finger (acquired) Right wrist tendonitis documented in this encounter [facility] note* Diagnosis Encounter for screening for cardiovascular disorders- Primary documented in this encounter [facility]* Diagnosis Foot pain, left Pain in limb documented in this encounter [facility] note* Diagnosis Tachycardia- Primary Unspecified tachycardia documented in this encounter [facility] note* Diagnosis Encounter for gynecological examination (general) (routine) with abnormal findings- Primary Pelvic pain in female Unspecified symptom associated with female genital organs Encounter for screening mammogram for malignant neoplasm of breast Screening for malignant neoplasm of cervix Screening for malignant neoplasm of the cervix [facility]* Diagnosis Left ovarian cyst- Primary Other and unspecified ovarian cyst Pelvic pain in female Unspecified symptom associated with female genital organs documented in this encounter [facility] for referral (narrative)* Diagnostic Procedure Only (Urgent) - Closed Specialty Diagnoses / Procedures Referred By Keanuac t Referred To Contact XR IMAGING Diagnoses Injury of right foot, initial encounter Procedures XR FOOT GENERAL 3V AP/LAT/OBL RIGHT RADEX FOOT COMPLETE MINIMUM 3 VIEWS Hayden Raymundo APRN.CNP [address] [place] [address] Xr Imaging Referral ID Status Reason Start Date Expiration Date V isits Requested Visits Authorized [id number] Closed Auto-Generate d Referral 06/14/2022 07/14/2023 1 1 [facility] for referral (narrative)* Diagnostic Procedure Only (Routine) - Pending Review Specialty Diagnoses / Procedures Referred By Yvette blas Referred To Contact US IMAGING Diagnoses Trigger thumb of right hand Trigger index finger of right hand Procedures US HAND/FINGER RIGHT US LMTD JOINT/OTH NONVASC XTR STRUX R-T W/IMG Meryl Ascencio MD [id number] [place], [place] [id number] Us Imaging [id number] Referral ID Status Reason Start Date Expiration Date Visits Requested Visits Authorized [id number] Pending Review Auto-Generat ed Referral 11/28/2023 12/27/2024 1 1 * Diagnostic Procedure Only (Routine) - Pending Review Specialty Diagnoses / Procedures Referred By Yvette t Referred To Contact US IMAGING Diagnoses Right wrist tendonitis Procedures US WRIST RIGHT US COMPL JOINT R-T W/[place] [address] [place] [address] [place] [address] Referral ID Status Reason Start Date Expiration Date Visits Requested Visits Authorized [id number] Pending Review Auto-Generat ed Referral 11/28/2023 12/27/2024 1 1 [facility] for referral (narrative)* Diagnostic Procedure Only (Urgent) - Closed Specialty Diagnoses / Procedures Referred By Contac t Referred To Contact XR IMAGING Diagnoses Foot pain, left Procedures XR FOOT GENERAL 3V AP/LAT/OBL LEFT RADEX FOOT COMPLETE MINIMUM 3 VIEWS Jason Dunn APRN.[employer]AT[employer] SET UP PERSON [address] [place] [address] [place] [address] Referral ID Status Reason Start Date Expiration Date V isits Requested Visits Authorized [id number] Closed Auto-Generate d Referral 07/03/2023 08/01/2024 1 1 [facility] for visit Narrative* Diagnostic Procedure Only (Urgent) - Closed Specialty Diagnoses / Procedures Referred By Contac t Referred To Contact XR IMAGING Diagnoses Foot pain, left Procedures XR FOOT GENERAL 3V AP/LAT/OBL LEFT RADEX FOOT COMPLETE MINIMUM 3 VIEWS Jason Dunn APRN.[employer] UP PERSON [address] [place] [address] [place] [address] Referral ID Status Reason Start Date Expiration Date V isits Requested Visits Authorized [id number] Closed Auto-Generate d Referral 07/03/2023 08/01/2024 1 1 [facility] for visit Narrative* Diagnostic Procedure Only (Urgent) - Closed Specialty Diagnoses / Procedures Referred By Contac t Referred To Contact XR IMAGING Diagnoses Injury of right foot, initial encounter Procedures XR FOOT GENERAL 3V AP/LAT/OBL RIGHT RADEX FOOT COMPLETE MINIMUM 3 VIEWS Hayden Raymundo APRN.[employer] PERSON [address] [place] [address] [place] [address] Referral ID Status Reason Start Date Expiration Date V isits Requested Visits Authorized [id number] Closed Auto-Generate d Referral 06/14/2022 07/14/2023 1 1 [facility] Summary Purpose Family History No Family History Records Found Relationship Condition Age at Onset Recorded Date/T mirima father Hypertension Unknown Coronary artery disease Unknown Myocardial infarction 41 Status post coronary artery bypass graft Unknown Presence of stent in coronary artery Unkn own Malignant neoplasm Unknown mother Chronic obstructive pulmonary disease Unk nown grandfather Malignant neoplasm Unknown grandfather Hypertension Unknown Cardiac disease Unknown Cerebrovascular accident (CVA) Unknown grandmother Cardiac disease Unknown Hypertension Unknown aunt Cardiac disease Unknown uncle Cardiac disease Unknown Advance Directives No Advanced Directives Records Found Advance Directive Response Recorded Date/ Time Living Will No December 29, 2019 3 :33pm Power of Implementation Architect No December 29, 2019 3:33pm Instructions Name Dates Details How to access health [email or web address] online Indication:BMI between 19-24,adult Start:25-Jul-2016 Instruction Type:Patient Education How to access health informa tion online - Detail Indication:BMI between 19-24,adult Start:25-Jul-2016 Instruction Type:Patient Education Patient Instructions Indication:BMI between 19-24,adult Start:25-Jul-2016 Instruction Type:Provider Instructions for Treatment How to access health informa tion online Indication:Anxiety and depression Start:26-Feb-2016 Instruction Type:Patient Education How to access health informa tion online - Detail Indication:Anxiety and depression Start:26-Feb-2016 Instruction Type:Patient Education Patient Instructions Indication:Left foot pain Start:26-Feb-2016 Instruction Type:Provider Instructions for Treatment Health Concerns Infection Onset Date Last Indicated Resolved Time COVID-19 Rule-Out 06/14/2022 06/14/2022 Chief Complaint and Reason for Visit Chief Complaint Unspecified abdomina l pain Reason for Referral Specialty Diagnoses / Procedures Referred By Contac t Referred To Contact Radiology Diagnoses Lisfranc's dislocation, left, sequela Procedures MR Foot Left Without Contrast Meng Duckworth Jr., DPM [address] [place] [address] [place] [id number] Phone: [phone] Referral ID Status Reason Start Date Expiration Date Visits Requested Visits Authorized [id number] New Request Patient Preference 10/27/2023 10/26/2024 1 1 Specialty Diagnoses / Procedures Referred By Yvette blas Referred To Contact Radiology Diagnoses Dislocation of tarsometatarsal joint of left foot, sequela Procedures MR foot left wo IV contrast Meng Duckworth DPM Office Address Unavailable as of 04/10/2023 Referral ID Status Reason Start Date Expiration Date Visits Requested Visits Authorized [id number] Authorized Perform Procedure 10/20/2023 10/19/2024 1 1 Additional Source Comments INFORMATION SOURCE (unrecogn ized section and content) DATE CREATED AUTHOR 12/15/2017 [facility] DATE CREATED AUTHOR AUTHOR'S ORGANIZ ATION 05/03/2022 [facility] DATE CREATED AUTHOR AUTHOR'S ORGANIZ ATION 12/09/2022 [facility] DATE CREATED AUTHOR AUTHOR'S ORGANIZ ATION 10/23/2023 [facility] DATE CREATED AUTHOR AUTHOR'S ORGANIZ ATION 11/29/2023 [facility] DATE CREATED AUTHOR AUTHOR'S ORGANIZ ATION 11/29/2023 [facility] DATE CREATED AUTHOR AUTHOR'S ORGANIZ ATION 01/11/2024 [facility] DATE CREATED AUTHOR AUTHOR'S ORGANIZ ATION 04/02/[address] [facility] Source Comments (unrecognize d section and content) In the event this informatio n is protected by the Federal Confidentiality of Alcohol and Drug Abuse Patient Records regulations: The Federal rules restrict any use of the information to criminally investigate or prosecute any alcohol or drug abuse patient.[facility] the event this information is protected by the Federal Confidentiality of Alcohol and Drug Abuse Patient Records regulations: The Federal rules restrict any use of the information to criminally investigate or prosecute any alcohol or drug abuse patient.[facility] the event this information is protected by the Federal Confidentiality of Alcohol and Drug Abuse Patient Records regulations: The Federal rules restrict any use of the information to criminally investigate or prosecute any alcohol or drug abuse patient.[facility] the event this information is protected by the Federal Confidentiality of Alcohol and Drug Abuse Patient Records regulations: The Federal rules restrict any use of the information to criminally investigate or prosecute any alcohol or drug abuse patient.[facility] Reason for Visit (unrecogniz ed section and content) Reason Comments Nasal Congestion drainage, fatigue x 5 days, right foot pain x 2 days, hit leg of table Reason Comments Foot Pain Patient presents for left foot pain. Patient states that she was here four weeks ago, xray was done. stated he didn't see anything in the xray. Patient was placed in boot. Patient wore boot for three weeks, however, patient states boot made pain worse. Reason Comments Foot Pain Follow up left foot stress fracture. Still sore and gets swollen.Has been getting shooting pain more laterally now. 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 Lakeshia Wang MD Family Provider Active Dr. Lakeshia Wang MD Primary Care Provider Active Team Status: Active Member Role Status Dates Dr. Ludwig Potts MD Primary Care Provider, Famil y Provider Active Team Status: Inactive Member Role Status Dates Dr. Lakeshia Wang MD Primary Care Prov ider, Attending Provider, Referring Provider Active Contractor Buyer Relationship Specialty Start Date End Date Lakeshia Wang MD [address] [place] [address] PCP - General Family Medicine 12/08/22 Contractor Buyer Relationship Specialty Start Date End Date Lakeshia Wang MD [address] [place] [address] PCP - General Family Medicine 12/08/22 Contractor Buyer Relationship Specialty Start Date End Date Lakeshia Wang MD [address] [place] [address] PCP - General Family Medicine 10/31/23 Contractor Buyer Relationship Specialty Start Date End Date Lakeshia Wang MD [address] [place] [address] PCP - General Family Medicine 12/08/22 Contractor Buyer Relationship Specialty Start Date End Date Lakeshia Wang MD [address] [place] [address] PCP - General Family Medicine 12/08/22 Contractor Buyer Relationship Specialty Start Date End Date Lakeshia Wang [address] [place] [address] PCP - General Family Medicine 03/12/18 Contractor Buyer Relationship Specialty Start Date End Date Lakeshia Wang MD [address] [place] [address] PCP - General Family Medicine 12/08/22 Contractor Buyer Relationship Specialty Start Date End Date Lakeshia Wang [address] [place] [address] PCP - General Family Medicine 03/12/18 Contractor Buyer Relationship Specialty Start Date End Date Lakeshia Wang [address] [place] [address] PCP - General Family Medicine 03/12/18 Contractor Buyer Relationship Specialty Start Date End Date Lakeshia Wang MD [address] [place] [address] PCP - General Family Medicine 12/08/22 Contractor Buyer Relationship Specialty Start Date End Date Lakeshia Wang MD [address] [place] [address] PCP - General Family Medicine 12/08/22 Contractor Buyer Relationship Specialty Start Date End Date Lakeshia Wang MD [address] [place] [address] PCP - General Family Medicine 12/08/22 <item> Privacy Markings (unrecogniz ed section and content) Section Author: Lucia Roberts PROHIBITION ON REDISCLOSURE OF CONFIDENTIAL INFORMATION This notice accompanies a disclosure of information concerning a client made to you with the consent of such client. Goals (unrecognized section and content) Goals may be documented in a n alternate section FOR RECORDS PERTAINING TO PATIENTS WHO ARE OR HAVE BEEN ENROLLED IN A CHEMICAL DEPENDENCY/SUBSTANCEABUSE PROGRAM, SOME INFORMATION MAY BE OMITTED. This clinical summary was aggregated from multiple sources. Caution should be exercised in using it in the provision of clinical care. This summary normalizes information from multiple sources, and as a consequence, information in this document may materially change the coding, format and clinical context of patient data. In addition, data may be omitted in some cases. CLINICAL DECISIONS SHOULD BE BASED ON THE PRIMARY CLINICAL RECORDS. [employer] provides no warranty or guarantee of the accuracy or completeness of information in this document.
[2025-05-14 17:42] LABS: Hematocrit 38.8 % (37-47); Hemoglobin 12.9 g/dL (12.0-15.0); Immature Granulocytes Count 0.020 X10^3/uL (0.0-0.0); Mean Corp Hgb Conc 33.2 g/dL (32-36); Mean Corpuscular Volume 88.4 fL (81-99); Mean Platelet Vol. 9.9 fl (6.2-12.0); NRBC Flagged by Analyzer 0 % (0-5); Platelet Count 381 K/mm3 (150-450); RBC Distribution Width CV 12.3 % (11.6-14.6); RBC Distribution Width SD 40.1 fl (35.1-43.9); Red Blood Count 4.39 M/mm3 (4.2-5.4); White Blood Count 9.3 K/mm3 (4.4-11.0)
[2025-05-14 18:32] LABS: FOLATES,SERUM (FOLIC ACID) 5.71 ng/mL (4.60-34.80)
[2025-05-14 18:33] LABS: AST(SGOT) 17 U/L (<=31); Alanine Aminotransfer ALT/SGPT 12 U/L (<=34); Albumin, Serum 4.3 g/dL (3.5-5.0); Alkaline Phosphatase 58 U/L (35-104); Anion Gap 9 (5-15); BUN 7 mg/dL (4-19); BUN/Creat Ratio 11.1 RATIO (10-20); Calcium,Total 9.0 mg/dL (7.6-11.0); Carbon Dioxide 30.3 mmol/L (21.0-32.0); Chloride 103 mmol/L (98-108); Ferritin 28 ng/mL (22-378); Follicle Stimulating Hormone 83.7 mIU/mL; Globulin 2.8 g/dL (2.2-4.2); Glucose 103 mg/dL (70-99); Potassium 4.0 mmol/L (3.3-5.1); Vitamin B12 396 pg/mL (180-914)
[2025-05-16 14:09] LABS: Lyme Scn Total Ab w/Rflx Negative (Negative)
[2025-05-17 09:08] LABS: ANTINUCLEAR ANTIBODIES DIRECT Negative (Negative)
== END | disposition home or self-care (01) ==
PROVIDERS: PCP Family Medicine; Referring Provider Family Medicine; Visit Provider Family Medicine
DX: R42 Dizziness and giddiness (principal); R53.83 Other fatigue
CPT/HCPCS: 36415; 80053; 82607; 82728; 82746; 83001; 83002; 83036; 84439; 84443; 85025; 86038; 86618